=== PATIENT | female | born 1940 | race Caucasian/White ===

== ENCOUNTER → 2017-04-25 | Outpatient (CLI) | payer BC ==
--- NOTE | 2017-04-26 13:18 | CARD ---
APPROVED REPORT EXAM: Two-dimensional and M-mode echocardiogram with Doppler and color Doppler. Other Information Quality : GoodHR: 73bpm Rhythm : NSR INDICATION Chest pain at rest, SOB at rest, Lower extremity edema RISK FACTORS Obesity 2D DIMENSIONS RVDd3.1 (2.9-3.5cm)Left Atrium(2D)4.1 (1.6-4.0cm) IVSd0.8 (0.7-1.1cm)Aortic Root(2D)2.9 (2.0-3.7cm) LVDd5.4 (3.9-5.9cm)LVOT Diameter2.2 (1.8-2.4cm) PWd0.8 (0.7-1.1cm)LVDs3.5 (2.5-4.0cm) FS (%) 35.0 %SV90.2 ml LVEF(%)60.0 (>50%) Aortic Valve AoV Peak Lino.132.8cm/sAoV VTI27.2cm AO Peak GR.7.1mmHgLVOT Peak Lino.95.3cm/s AO Mean GR.4mmHgAVA (VMAX)2.74cm2 Mitral Valve MV E Vzmtpgul06.7cm/sMV E Peak Gr.3mmHg MV DECEL [id number] A Vosgicvk08.2cm/s MV E Mean Gr.1mmHgE/A Ratio0.8 MV A [id number] Pulmonary Valve PV Peak Bcdxpexk75.1cm/s Tricuspid Valve TR P. Exwskfos594jh/sTR Peak Gr.23mmHg Pulmonary Vein S1 Iwzkmguk45.8cm/sD2 Vruzvsgq21.0cm/s PVa hvxtmoir70vcpj LEFT VENTRICLE The left ventricle is normal size. There is normal left ventricular wall thickness. The left ventricu lar systolic function is normal and the ejection fraction is within normal range. The Ejection Fracti on is 60%. There is normal LV segmental wall motion. Transmitral Doppler flow pattern is Grade I-abno rmal relaxation pattern. RIGHT VENTRICLE The right ventricle is normal size. There is normal right ventricular wall thickness. The right ventr icular systolic function is normal. ATRIA The left atrium size is normal. The right atrium size is normal. The interatrial septum is intact wit h no evidence for an atrial septal defect or patent foramen ovale as noted on 2-D or Doppler imaging. AORTIC VALVE The aortic valve is mildly sclerotic. The aortic valve is trileaflet. Doppler and Color Flow revealed trace aortic regurgitation. There is no significant aortic valvular stenosis. MITRAL VALVE Mitral annular calcification is mild. The mitral valve leaflets are thickened. There is no evidence o f mitral valve prolapse. There is no mitral valve stenosis. Doppler and Color Flow revealed mild to m oderate mitral regurgitation. TRICUSPID VALVE Doppler and Color Flow revealed trace tricuspid regurgitation. The pulmonary artery systolic pressure is estimated at 26 mmHg. There is no pulmonary hypertension. PULMONIC VALVE Doppler and Color Flow revealed trace pulmonic valvular regurgitation. There is no pulmonic valvular stenosis. GREAT VESSELS The aortic root is normal in size. The ascending aorta is mildly dilated. The pulmonary artery is nor mal. The IVC is normal in size and collapses >50% with inspiration. PERICARDIAL EFFUSION There is no evidence of significant pericardial effusion. Critical Notification Critical Value: No <Conclusion> The left ventricular systolic function is normal and the ejection fraction is within normal range. The Ejection Fraction is 60%. Transmitral Doppler flow pattern is Grade I-abnormal relaxation pattern. The left atrium size is normal. The right atrium size is normal. The aortic valve is mildly sclerotic. The aortic valve is trileaflet. Doppler and Color Flow revealed trace aortic regurgitation. Doppler and Color Flow revealed mild to moderate mitral regurgitation. Mitral annular calcification is mild. The mitral valve leaflets are thickened. Doppler and Color Flow revealed trace tricuspid regurgitation. The pulmonary artery systolic pressure is estimated at 26 mmHg. There is no pulmonary hypertension. Doppler and Color Flow revealed trace pulmonic valvular regurgitation. The ascending aorta is mildly dilated. There is no evidence of significant pericardial effusion.
== END | disposition home or self-care (01) ==
LOC: ECHO 10:22
PROVIDERS: ATTEND Internal Medicine Cardiovascular Disease
DX: I08.3 Combined rheumatic disorders of mitral, aortic and tricuspid valves (principal); R06.02 Shortness of breath; R60.0 Localized edema
CPT/HCPCS: 93306

== ENCOUNTER → 2017-07-04 | Outpatient (CLI) | payer BC ==
[~2017-07-04] MED LIST: BARIUM SULFATE 340 GM SUSPENSION. PO ONE; BARIUM SULFATE 60% 355 ML SUSP PO ONE; SIMETHICONE/SOD BICARB/CITRIC ACID PACKET. PO ONE
--- NOTE | 2017-07-04 11:46 | RAD ---
Esophagram, 07/04/2017: History: Cough, swallowing difficulty The study was performed utilizing high density and thin liquid barium. 4.7 minutes of fluoroscopy time was utilized. 14 dynamic and static fluoroscopic sequences were recorded. There is no obstruction to flow of the contrast through the cervical esophagus. A mild cricopharyngeal impression is noted along the posterior wall of the cervical esophagus. There is no evidence of aspiration. The esophageal peristalsis is decreased with some stasis of the barium in the thoracic esophagus, particularly in the recumbent position. No obstructing process is seen. There is a small hiatal hernia. No spontaneous gastroesophageal reflux was demonstrated at this time. IMPRESSION: 1. Small hiatal hernia. 2. Decreased esophageal peristalsis.
== END | disposition home or self-care (01) ==
LOC: RAD 10:59
PROVIDERS: ATTEND Otolaryngology
DX: K21.9 Gastro-esophageal reflux disease without esophagitis (principal); K44.9 Diaphragmatic hernia without obstruction or gangrene; R05 Cough
CPT/HCPCS: 74220

== ENCOUNTER → 2017-10-07 | Outpatient (CLI) | payer BC ==
--- NOTE | 2017-10-07 09:53 | RAD ---
DATE: 10/07/2017 EXAM: DIGITAL SCREEN BILAT W/CAD HISTORY: Routine screening COMPARISON: 10/04/2016 This study was interpreted with the benefit of Computerized Aided Detection (CAD). The breast parenchyma shows scattered fibroglandular densities. Breast parenchyma level B. FINDINGS: No new or enlarging breast densities are seen. Benign type calcifications are present. No suspicious microcalcifications have developed. Benign-appearing lymph node type densities are again noted in the axillary regions. IMPRESSION: Stable mammograms without evidence of malignancy. BI-RADS CATEGORY: 2 BENIGN FINDING(S) RECOMMENDED FOLLOW-UP: 12M 12 MONTH FOLLOW-UP PQRS compliance statement: Patient information was entered into a reminder system with a target due date for the next mammogram. Mammography is a sensitive method for finding small breast cancers, but it does not detect them all and is not a substitute for careful clinical examination. A negative mammogram does not negate a clinically suspicious finding and should not result in delay in biopsying a clinically suspicious abnormality. "Our facility is accredited by the [employer] Mammography Program."
== END | disposition home or self-care (01) ==
LOC: MAMMO 07:32
PROVIDERS: ATTEND Family Medicine
DX: Z12.31 Encounter for screening mammogram for malignant neoplasm of breast (principal)
CPT/HCPCS: G0202; 77067

== ENCOUNTER → 2018-02-12 | Outpatient (CLI) | payer BC | END | disposition home or self-care (01) | LOC: ECHO 12:33 | DX: I08.0 Rheumatic disorders of both mitral and aortic valves (principal) | CPT/HCPCS: 93306 ==

== ENCOUNTER → 2018-09-15 | Outpatient (CLI) | payer BC | END | disposition home or self-care (01) | LOC: ECHO 09:07 | PROVIDERS: ATTEND Internal Medicine Cardiovascular Disease | DX: I34.0 Nonrheumatic mitral (valve) insufficiency (principal) | CPT/HCPCS: 93306 ==

== ENCOUNTER → 2019-02-06 | Outpatient (CLI) | payer BC ==
[~2019-02-06] MED LIST changes: +ACET500T68 PO; +AMIT100T PO; +ASPI325T11 PO; -BARIUM SULFATE 340 GM SUSPENSION. PO ONE; -BARIUM SULFATE 60% 355 ML SUSP PO ONE; +CALC600T4 PO; +CYAN500T40 SL; +FLUO20CA8 PO; +IBUP-1060 PO; +LORA10TA3 PO; +LOSA1TAB25 PO; +MELO15TA23 PO; +MONT10TA9 PO; +MULT-650 PO; +OXYC1TAB22 PO; +PRAV20TA2 PO; +RANI150C PO; +REGADENOSON 0.4 MG/5 ML DISP.SYRIN. IV ONE; -SIMETHICONE/SOD BICARB/CITRIC ACID PACKET. PO ONE; +VERA240C2 PO
--- NOTE | 2019-02-06 13:44 | RAD ---
MR#: [id number] Date of Study: 02/06/2019 Ordering Physician: NINO BLOOM, Referring Physician: ZARA TANG Tech: DANGELO Kitchen APPROVED REPORT Test Type: Pharmacological Stress Nurse/Tech: Lian Myrick R.N. Test Indications: dyspnea, lightheaded Cardiac History: htn Medications: See Electronic Medical Record Medical History: See Electronic Medical Record Resting ECG: SR- some T and p waves are fairly flat Resting Heart Rate: 79 bpm Resting Blood Pressure: 135/53mmHg Pretest Chest Pain: No chest pain Nurse/Tech Notes S1S2, lungs CTA Consent: The procedure was explained to the patient in lay terms. Informed consent was witnessed. Boy eout was entered into [employer]. History and Stress Test performed by RT Gael (R) (N) Pharm. Details Pharmacologic stress testing was performed using 0.4mg per 5ml of regadenoson given intravenously ove r 7-10 seconds. Stress Symptoms SOB, h/a POST EXERCISE Reason for Termination: Infusion complete Max HR: 93 bpm Max Blood Pressure: 177/90mmHg Blood Pressure response to exercise: Normal blood pressure response during stress. Heart Rate response to exercise: wnl Chest Pain: No. Arrhythmia: No. ST Change: No. INTERPRETATION Stress EKG Conclusion: No evidence of stress induced EKG changes. Imaging Protocol IMAGE PROTOCOL: Rest Tc-99m/stress Tc-99m 1 day Rest: Stress: Viability: Radiopharm.Tc99m AzvbbekgdFk04d Sestamibi Zjof59gVa 33mCi Duration 16min. 13min. Img Date 02/06/2019 02/06/2019 Inj-Img Pnci92pqm. 60min. Rest Admin Site:IV - Right AntecubitalAdministrator:RT Gael (R)(N) Stress Admin Site: IV - Right AntecubitalAdministrator: ZARA IyerTCB, ARRT (R)(N) STRESS DATA End Diast. Vol.107.0mlLVEDV index BSA59.0ml End Syst. Vol.29.0mlLVESV index BSA16.0ml Myocardial Ydxo956.0gEject. Kqkyxezb53.0% Stress Scores Regional WT0.00Summed WT3.00 Regional WM0.00Summed WM1.00 LV Perfusion There is a moderate sized basal to distal anteroseptal defect on stress images with reversibility not ed in the apical segments only, suggestive of prior septal infart with mild ischemia in the apical se gments. Wall Motion Normal wall motion. LV Perf. Quant 17 Seg. SSS9.00 17 Seg. SRS9.00 17 Seg. SDS3.00 Stress Defect Extent (% LAD)31.30Rest Defect Extent (% LAD)20.60Rev. Defect Extent (% LAD)6.30 Stress Defect Extent (% LCX) 38.80Rest Defect Extent (% LCX)31.30Rev. Defect Extent (% LCX)0.00 Stress Defect Extent (% RCA)0.00Rest Defect Extent (% RCA)0.00Rev. Defect Extent (% RCA)0.00 Stress Defect Extent (% RUFUS)20.70Rest Defect Extent (% RUFUS)14.30Rev. Defect Extent (% RUFUS)2.40 Other Information Quality:Good Risk Assessment: Moderate Risk Conclusion 1. No evidence of stress induced EKG changes. 2. Apical and septal defects with mild ischemia as noted above. 3. Normal EF at 55% 4. Moderate risk study Signed by : Nino Bloom, Electronically Approved : 02/06/2019 13:44:20
== END | disposition home or self-care (01) ==
LOC: NM 07:26
PROVIDERS: ATTEND Internal Medicine Cardiovascular Disease
DX: I25.9 Chronic ischemic heart disease, unspecified (principal); I10 Essential (primary) hypertension; Q21.1 Atrial septal defect
CPT/HCPCS: 78452; 93017; 96374; A9500; J2785

== ENCOUNTER → 2019-02-17 | Outpatient (CLI) | payer BC ==
[~2019-02-17] MED LIST changes: -REGADENOSON 0.4 MG/5 ML DISP.SYRIN. IV ONE
--- NOTE | 2019-02-17 10:06 | RAD ---
MR#: [id number] Date of Study: 02/17/2019 Ordering Physician: NINO RENTERIA, Referring Physician: NINO RENTERIA, Tech: Otoniel Gould MBA, RDMS, RVT, RDCS, RTR APPROVED REPORT Patient Location : OUT-PATIENT Indications Lower Extremity Edema : Bilateral Greater Saphenous Veins (GSV) Significant venous relux noted in the RIGHT GSV at the following levels : Superficial Femoral Junctio n Findings The right GSV measures 6.2 mm and has a reflux time of 2.5 seconds at the SFJ but this is not well vi sualized throughout the course of the vein. The left GSV measures 5.6 mm and does not reflux. The bilateral lesser saphenous veins do not reflux. Critical Notification Critical Value: No <Conclusion> Mild reflux in the R GSV Signed by : Nino Renteria, Electronically Approved : 02/17/2019 10:05:53
== END | disposition home or self-care (01) ==
LOC: US 07:21
PROVIDERS: ATTEND Internal Medicine Cardiovascular Disease
DX: I87.2 Venous insufficiency (chronic) (peripheral) (principal)
CPT/HCPCS: 93970

== ENCOUNTER → 2019-02-17 | Outpatient (CLI) | payer BC ==
[2019-02-17 14:45] LABS: BASO # 0.1 x10^3/uL (0.0-0.2); BASO % 1 % (0-3); EOS # 0.1 x10^3/uL (0.0-0.7); EOS % 1 % (0-3); HEMATOCRIT 32.6 % (36.0-47.0); LYMPH # 1.8 x10^3/uL (1.0-4.8); LYMPH % 36 % (24-48); MEAN CORPUSCULAR HEMOGLOBIN 32 pg (25-35); MEAN CORPUSCULAR HGB CONC 34 g/dL (31-37); MEAN CORPUSCULAR VOLUME 94 fL (79-100); MONO # 0.5 x10^3/uL (0.0-1.1); MONO % 11 % (0-9); NEUT # 2.5 x10^3uL (1.8-7.7); NEUT % 51 % (31-73); PLATELET COUNT 316 x10^3/uL (140-400); RED BLOOD COUNT 3.46 x10^6/uL (3.50-5.40); RED CELL DISTRIBUTION WIDTH 13.1 % (11.5-14.5)
[2019-02-17 14:45] LABS: BILIRUBIN,URINE NEGATIVE (NEG); CLARITY,URINE CLEAR; COLOR,URINE YELLOW; NITRITE,URINE NEGATIVE (NEG); PH,URINE 7.5; PROTEIN,URINE NEGATIVE (NEG-TRACE); UROBILINOGEN,URINE 0.2 mg/dL (0.2 mg/dL)
--- NOTE | 2019-02-17 14:50 | EKG ---
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
[2019-02-17 14:52] LABS: ALBUMIN 3.7 g/dL (3.4-5.0); CALCIUM 9.1 mg/dL (8.5-10.1); CREATININE 0.6 mg/dL (0.6-1.0); GFR 97.2; POTASSIUM 3.4 mmol/L (3.5-5.1)
[2019-02-17 14:55] LABS: BACTERIA,URINE 0 /HPF (0-FEW); SQUAMOUS EPITHELIAL CELL,UR FEW /LPF; WBC,URINE RARE /HPF (0-4)
[2019-02-17 14:58] LABS: PROTHROMBIN TIME PATIENT 12.9 SEC (11.7-14.0)
[2019-02-18 00:18] LABS: HEMOGLOBIN A1C 5.3 % (4.8-5.6)
--- NOTE | 2019-02-18 08:15 | RAD ---
CHEST PA LATERAL History: PRE OP RT KNEE REPLACEMENT ON 02/19/19. HX HTN Comparison: None. Findings: The cardiomediastinal silhouette is normal. Pulmonary vasculature is normal. The lungs are clear. No pleural effusion or pneumothorax is seen. There is no acute bone abnormality. Dextroconvex scoliosis of the thoracic spine is present. IMPRESSION: No acute cardiopulmonary process. Electronically signed by: Santo Everett MD (02/18/2019 8:12 AM) [facility]
== END | disposition home or self-care (01) ==
LOC: SURGPAT 13:21
PROVIDERS: ATTEND Orthopaedic Surgery
DX: Z01.818 Encounter for other preprocedural examination (principal); M17.11 Unilateral primary osteoarthritis, right knee; I10 Essential (primary) hypertension; Z88.0 Allergy status to penicillin
CPT/HCPCS: 36415; 71046; 80048; 81001; 82040; 82306; 83036; 85025; 85610; 85651; 85730; 87641; 93005

== ENCOUNTER 2019-02-19 06:54 | Outpatient (CLI) | payer BC ==
[~2019-02-19] VITALS: Ht 152.4 cm; Wt 81.6 kg
[2019-02-19] VITALS (12 sets, daily range): BP systolic 123–149; BP diastolic 69–82
[~2019-02-19 06:54] MED LIST changes: -ACET500T68 PO; -ASPI325T11 PO; -CYAN500T40 SL; -MELO15TA23 PO; -OXYC1TAB22 PO; -PRAV20TA2 PO; -RANI150C PO
[2019-02-19 07:16] LABS: HEMATOCRIT 32.5 % (36.0-47.0); HEMOGLOBIN 11.2 g/dL (12.0-15.5); RED BLOOD COUNT 3.44 x10^6/uL (3.50-5.40); RED CELL DISTRIBUTION WIDTH 13.3 % (11.5-14.5); WHITE BLOOD COUNT 5.1 x10^3/uL (4.0-11.0)
[2019-02-19 07:24] LABS: CALCIUM 9.2 mg/dL (8.5-10.1); CREATININE 0.7 mg/dL (0.6-1.0); GFR 81.4; POTASSIUM 3.9 mmol/L (3.5-5.1)
[2019-02-19 07:29] LABS: PROTHROMBIN TIME PATIENT 12.5 SEC (11.7-14.0)
[2019-02-19] MEDS ORDERED: RANI150C PO (07:35)
[2019-02-19] MEDS ORDERED: IOHEXOL 300 MG/ML 100ML VIAL. ONE (07:41)
[2019-02-19] MEDS ORDERED: LIDOCAINE 1% PF 2 ML VIAL. ONE (07:41)
[2019-02-19] MEDS ORDERED: HEPARIN for ARTERIAL LINE 1,500 ML ONE (07:42)
[2019-02-19] MEDS ORDERED: PRAV20TA2 PO (07:52)
[2019-02-19] MEDS ORDERED: CYAN500T40 SL (07:52)
--- NOTE | 2019-02-19 08:18 | PDOC ---
MODERATE SEDATION ASSESSMENT RISKS/ALTERNATIVES Risks/Alternatives Risks and alternatives of this type of sedation and procedure discussed with: RISK/ALTERNATIVES: Patient H & P ON CHART H & P H & P on chart and reviewed for co-morbid conditions and appropriate labs. H&P ON CHART: Yes STATUS PREG STATUS ASSESSED: N/A MEDS/ALLERGIES REVIEWED Meds/Allergies Reviewed Medications and Allergies including time and route of recently administered narcotics and sedatives. MEDS/ALLERGIES REVIEWED: Yes ASA RATING ASA RATING: II AIRWAY ASSESSMENT Airway Assessment Airway patency, oral function limitations, presence of caps, crowns, dentures, partials, and ability to extend neck assessed. AIRWAY ASSESSMENT: Yes MALLAMPATI SCORE MALLAMPATI SCORE: II PRE-SEDATION ASSESSMENT PRE-SEDATION ASSESSMENT: Yes NINO RENTERIA MD Feb 19, 2019 08:18
[2019-02-19] MEDS ORDERED: FAMOTIDINE 20 MG/2 ML VIAL ONE (08:19)
[2019-02-19] MEDS ORDERED: fentaNYL PF VIAL 100 MCG/2 ML VIAL ONE (08:19)
[2019-02-19] MEDS ORDERED: HEPARIN for IV BOLUS 10,000 UNIT/10 ML VIAL. ONE (08:19)
[2019-02-19] MEDS ORDERED: methylPREDNISolone SOD SUCC PF 125 MG/2 ML VIAL. ONE (08:19)
[2019-02-19] MEDS ORDERED: VERAPAMIL 5 MG/2 ML VIAL. ONE (08:19)
[2019-02-19] MEDS ORDERED: diphenhydrAMINE 50 MG/ML VIAL ONE (08:19)
[2019-02-19] MEDS ORDERED: MIDAZOLAM HCL/PF 2 MG/2 ML VIAL. ONE (08:19)
[2019-02-19] MEDS ORDERED: NITROGLYCERIN 200 MCG/2 ML SYRINGE FOR CATH/VASC LAB. ONE ×3 (08:20→08:55)
[2019-02-19] MEDS ORDERED: FAMOTIDINE 20 MG/2 ML VIAL IVP ONE (09:00)
[2019-02-19] MEDS ORDERED: HEPARIN for IV BOLUS 10,000 UNIT/10 ML VIAL. IART ONE (09:00)
[2019-02-19] MEDS ORDERED: diphenhydrAMINE 50 MG/ML VIAL IVP ONE (09:00)
[2019-02-19] MEDS ORDERED: HEPARIN for IV BOLUS 10,000 UNIT/10 ML VIAL. IV ONE (09:00)
[2019-02-19] MEDS ORDERED: LIDOCAINE 1% PF 2 ML VIAL. INJ ONE (09:00)
[2019-02-19] MEDS ORDERED: fentaNYL PF VIAL 100 MCG/2 ML VIAL IV ONE (09:00)
[2019-02-19] MEDS ORDERED: NITROGLYCERIN 200 MCG/2 ML SYRINGE FOR CATH/VASC LAB. IART ONE (09:00)
[2019-02-19] MEDS ORDERED: methylPREDNISolone SOD SUCC PF 125 MG/2 ML VIAL. IV ONE (09:00)
[2019-02-19] MEDS ORDERED: MIDAZOLAM HCL/PF 2 MG/2 ML VIAL. IV ONE (09:00)
[2019-02-19] MEDS ORDERED: IOHEXOL 300 MG/ML 100ML VIAL. IART ONE (09:00)
[2019-02-19] MEDS ORDERED: VERAPAMIL 5 MG/2 ML VIAL. IART ONE (09:00)
[2019-02-19] MEDS ORDERED: CONTRAST GIVEN. MC PRN (09:15)
--- NOTE | 2019-02-19 09:20 | CARD ---
MR#: [id number] Date of Study: 02/19/2019 Ordering Physician: NINO BLOOM, Referring Physician: NINO BLOOM, Tech: CARLOS ORLANDO RTR APPROVED REPORT Technologist: CARLOS ORLANDO RTR Nurse: Lorri Saucedo R.N. Procedure(s) performed: MODERATE SEDATION TIME: 37 MIN FLUORO TIME: 4.3 DOSE: 24 GYCM2 CONTRAST: 40 mL LHC, Coronary angiography HISTORY The patient is a 78 year-old female with a history of : tobacco history() , hypertension, dyslipidemi a. INDICATION The indication(s) include : positive stress test, unstable angina , dyspnea. CS Clinical Frailty Scale [facility] Clinical Frailty Scale: Managing Well Heart Failure Heart Failure: Yes If Yes, Newly Diagnosed: No If Yes, HF Type: Diastolic If Yes, NYHA Class: Class II PROCEDURE NARRATIVE INFORMED CONSENT: After explaining the risks and benefits of the procedure and alternatives, informed consent was obtained. The patient was brought electively to the cardiac catheterization lab. A timeout was performed confi rming the patient's name, date of , procedure, and site of procedure. All necessary personnel w ere wearing the appropriate protective equipment and radiation monitor devices. (See nursing notes for medications administered). ACCESS: The right wrist was sterilely prepped and draped in the usual fashion. The right wrist was infiltrat ed with 1 mL of 2% lidocaine for subcutaneous anesthesia. A 6 [place] Terumo glide sheath was inserte d into the right radial artery without difficulty. CORONARY ANGIOGRAPHY: Right and left coronary angiography was performed using a 6Fr TIG 4.0 catheter. Left ventricular en d diastolic pressure was obtained with a TIG catheter and pullback was performed after left ventricul ography. All catheter exchanges and advancements were performed over a guidewire. CLOSURE: At case completion the right radial sheath was removed and a Terumo radial band was applied with 13 m l of air. COMPLICATIONS: The patient tolerated the procedure well and there were no immediate complications. FINDINGS: HEMODYNAMICS: LVEDP 22 mm Hg No gradient on LV to aortic pullback. AO: 158/78 LEFT VENTRICULOGRAM: Deferred due to known EF of 55% by MPI. CORONARY ANGIOGRAPHY: LM is a large caliber vessel with normal angiographic appearance. LAD is a large caliber vessel with normal angiographic appearance. LCx is a large caliber non-dominant vessel with normal angiographic appearance. OM1 is a moderate caliber vessel with normal angiographic appearance. RCA is a large caliber dominant vessel with amid 50-60% stenosis. RPDA and RPL are moderate caliber vessels with normal angiographic appearance. An attempt was made to obtain an iFR measurement but due to severe radial artery spasm, advancement o f guide catheters was unsuccessful. Due to minimal ischemia, normal EF and only a moderate stenosis, further intervention was deferred in favor of medical therapy and staged PCI if needed based on sympt oms. Conclusion 1. Elevated left sided filling pressures suggestive of mild diastolic HF 2. One vessel CAD Recommendations Aggressive Medical Therapy Signed by : Nino Bloom, Electronically Approved : 02/19/2019 09:19:57
[2019-02-19] MEDS ORDERED: 0.9 % SODIUM CHLORIDE 10 ML DISP.SYRIN. IV PRN (11:00)
[2019-02-19] MEDS ORDERED: NITROGLYCERIN SUBLINGUAL 0.4 MG BOTTLE OF 25. SL PRN (11:00)
--- NOTE | 2019-02-19 11:54 | NUR ---
Discharge Note: NORAH PIZARRO Discharge instructions and discharge home medications reviewed with Patient and a copy given. All questions have been answered and understanding verbalized. The following instructions and handouts were given: moderate sedation and radial site care Discontinued lines and drains: Peripheral IV intact. Patient discharged to Home or Self Care withSpousevia Wheelchair
[2019-03-13] MEDS ORDERED: OXYC1TAB22 PO (10:45)
== END 2019-02-19 12:00 | disposition home or self-care (01) ==
LOC: CCL 06:54
PROVIDERS: ATTEND Internal Medicine Cardiovascular Disease
DX: I25.110 Atherosclerotic heart disease of native coronary artery with unstable angina pectoris (principal); I10 Essential (primary) hypertension; E78.5 Hyperlipidemia, unspecified; K21.9 Gastro-esophageal reflux disease without esophagitis; Z88.0 Allergy status to penicillin; Z88.8 Allergy status to other drugs, medicaments and biological substances; Z79.899 Other long term (current) drug therapy; Z87.19 Personal history of other diseases of the digestive system; Z98.1 Arthrodesis status; Z98.890 Other specified postprocedural states; Z96.652 Presence of left artificial knee joint; Z87.891 Personal history of nicotine dependence; Z82.49 Family history of ischemic heart disease and other diseases of the circulatory system
CPT/HCPCS: 36415; 80048; 85027; 85610; 93458; 99152; 99153; C1769; C1892; J1200; J1644; J2250; J2930; J3010; J3490; Q9967

== ENCOUNTER 2019-03-10 06:40 | Inpatient (IN) | payer BC ==
--- NOTE | 2019-03-09 16:54 | PDOC1 ---
History and Physical Date of Admission Date of Admission 03/10/19 Identification/Chief Complaint Chief Complaint right knee osteoarthritis pain Source Source: Chart review History of Present Illness History of Present Illness 78-year-old woman with right knee arthritis pain for many years. Remotely she tried cortisone injections, "gel" shots, and physical therapy. She uses ibuprofen, and occasional narcotic pain medicines for the knee pain. It limits her activity on a daily basis or near daily. She had a left total knee replacement by Dr. Roca in 2012 which is doing very well. In the recovery room from the left total knee replacement she had marked hypertension and almost ended up in the ICU. Otherwise she has done quite well with the left total knee. Her primary physician is James Benito. She saw Dr. 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 She has mitral valve regurgitation and other diagnoses. She lives at home with her of 50 years. Her got very sick in November 2018, and ended up with a pacemaker by Dr. Bloom, and is doing fine now. Past Medical History Cardiovascular: HTN, Valve insufficiency Past Surgical History Past Surgical History: Total knee replacement (Left TKA Roca 2012) Social History Smoke: Quit ALCOHOL: none Current Medications Current Medications Current Medications Ondansetron HCl (Zofran) 4 mg PRN Q6HRS PRN IV NAUSEA/VOMITING; Start 03/10/19 at 07:00; Stop 03/11/19 at 06:59 Fentanyl Citrate (Fentanyl 2ml Vial) 25 mcg PRN Q5MIN PRN IV MILD PAIN; Start 03/10/19 at 07:00; Stop 03/11/19 at 06:59 Fentanyl Citrate (Fentanyl 2ml Vial) 50 mcg PRN Q5MIN PRN IV MODERATE TO SEVERE PAIN; Start 03/10/19 at 07:00; Stop 03/11/19 at 06:59 Morphine Sulfate (Morphine Sulfate) 1 mg PRN Q10MIN PRN IV SEVERE PAIN; Start 03/10/19 at 07:00; Stop 03/11/19 at 06:59 Ringer's Solution 1,000 ml @ 30 mls/hr Q24H IV ; Start 03/10/19 at 07:00; Stop 03/10/19 at 18:59 Lidocaine HCl (Xylocaine-Mpf 1% 2ml Vial) 2 ml PRN 1X PRN ID PRIOR TO IV START; Start 03/10/19 at 07:00; Stop 03/11/19 at 06:59 Hydromorphone HCl (Dilaudid) 0.5 mg PRN Q10MIN PRN IV SEV PAIN, Second choice; Start 03/10/19 at 07:00; Stop 03/11/19 at 06:59 Prochlorperazine Edisylate (Compazine) 5 mg PACU PRN PRN IV NAUSEA, MRX1; Start 03/10/19 at 07:00; Stop 03/11/19 at 06:59 Morphine Sulfate 5 mg/Ketorolac Tromethamine 30 mg/Ropivacaine 60 ml/Epinephrine HCl 0.5 mg/Sodium Chloride 100 ml @ 100 mls/hr 1X ONCE INT ART ; Start 9 at 06:00; Stop 03/10/19 at 06:59 Active Scripts Active Reported Vitamin B-12 (Cyanocobalamin (Vitamin B-12)) 500 Mcg Tab.subl 500 Mcg SL DAILY Pravastatin Sodium 20 Mg Tablet 1 Tab PO QODAY Ranitidine Hcl 150 Mg Capsule 1 Cap PO BID Centrum Silver Women Tablet (Multivits-Min/Iron/FA/Lutein) 1 Each Tablet 1 Each PO DAILY Calcium (Calcium Carbonate) 600 Mg Tablet 600 Mg PO DAILY Montelukast Sodium Tablet (Montelukast Sodium) 10 Mg Tablet 1 Tab PO DAILY Loratadine 10 Mg Tablet 1 Tab PO DAILY Fluoxetine Hcl 20 Mg Capsule 1 Cap PO DAILY Verapamil Er (Verapamil Hcl) 240 Mg Cap24h.pel 120 Mg PO DAILY Losartan-Hctz 100-12.5 Mg Tab (Losartan/Hydrochlorothiazide) 1 Each Tablet 1 Tab PO DAILY Ibuprofen 800 Mg Tablet 800 Mg PO TID PRN Amitriptyline Hcl 100 Mg Tablet 1 Tab PO QHS Allergies Allergies: Coded Allergies: Penicillins (Verified Allergy, Severe, DIFFICULTY BREATHING, 02/17/19) iodine (Verified Allergy, Intermediate, Hives, 02/17/19) Physical Exam General: Alert, Cooperative HEENT: Atraumatic Lungs: Normal air movement Heart: RRR Abdomen: Soft Extremities: No clubbing, No cyanosis, No edema, Normal pulses Images Images [facility] [address] [place] [address] IMAGING REPORT Signed PATIENT: NORAH PIZARRO ACCOUNT: [id number] : 1940 LOCATION: [facility] AGE: 78 SEX: F EXAM STATUS: REG CLI ORD. PHYSICIAN: MAYA WHITT MD REASON: PROCEDURE: KNEE RIGHT 3V EXAM: Right knee, 3 views. HISTORY: Pain. COMPARISON: None. FINDINGS: A frontal standing view both knees and lateral and sunrise views of the right knee are obtained. There is severe right medial compartment joint space narrowing with subchondral sclerosis and spurring. There is moderate to severe patellofemoral compartment spurring. There is a small right knee effusion. There is a suspected degenerative subchondral cyst or small osteochondral lesion along the articular aspect of the lateral femoral condyle. There is a left knee arthroplasty in expected position. IMPRESSION: 1. Severe medial and moderate to severe lateral compartment osteoarthritis of the right knee with small joint effusion. There is a small lucency along the articular aspect of the lateral femoral condyle which may be a small degenerative subchondral cyst or osteochondral lesion. 2. Left knee arthroplasty in expected position. Electronically signed by: Maria Fernanda Mahoney MD (01/29/2019 5:13 PM) [facility] DICTATED and SIGNED BY: MARIA FERNANDA MAHONEY MD DATE: 01/29/19 1713 VTE Prophylaxis Ordered VTE Prophylaxis Devices: Yes VTE Pharmacological Prophylaxi: Yes Assessment/Plan Assessment/Plan She and I discussed options for treatment. She has tried nonoperative treatment without sustained relief. She is doing well with a left knee replacement. I recommend total knee arthroplasty, and she agrees with that plan. We discussed the potential risks of infection, neurovascular injury, bleeding, blood clots, need for revision surgery, or other potential surgical or anesthetic complications. we discussed the expected hospitalization, recovery, and long- term expectations of knee replacement. All of her questions about surgery were answered and she desires to proceed at the first mutually convenient date. MAYA WHITT MD March 09, 2019 16:54
[~2019-03-10] VITALS: Ht 152.4 cm; Wt 84.4 kg
[2019-03-10] VITALS (7 sets, daily range): BP systolic 104–122; BP diastolic 58–73
[~2019-03-10 06:40] MED LIST changes: +ACETAMINOPHEN 500 MG TABLET PO PRN; +CLINDAMYCIN 900MG PREMIX 50 ML IV PRN; +CYAN500T40 SL; +MELOXICAM 7.5 MG TABLET PO PRN; +MORPHINE SULFATE 5 MG, KETOROLAC 30MG VIAL 30 MG, ROPIVacaine 0.5% PF 60 ML, EPINEPHrin... INT ART ONE; +PRAV20TA2 PO; +RANI150C PO; +TRANEXAMIC ACID 1,000 MG in IV NS 50ML -- 1ST BAG INJ ONE
[2019-03-10] MEDS ORDERED: HYDROmorphone 2 MG/ML VIAL IV PRN (07:00)
[2019-03-10] MEDS ORDERED: ONDANSETRON PF 4 MG/2 ML VIAL. IV PRN (07:00)
[2019-03-10] MEDS: IV RINGERS,LACTATED 1000ML 1,000 ML IV SCH ×2 (07:00→12:53)
[2019-03-10] MEDS ORDERED: LIDOCAINE 1% PF 2 ML VIAL. ID PRN (07:00)
[2019-03-10] MEDS ORDERED: fentaNYL PF VIAL 100 MCG/2 ML VIAL IV PRN ×3 (07:00→12:30)
[2019-03-10] MEDS ORDERED: HYDROcodone/APAP 7.5/325MG 1 TAB TABLET ONE (07:08)
[2019-03-10] MEDS ORDERED: MELO15TA23 PO (07:25)
[2019-03-10] MEDS ORDERED: ACET500T68 PO (07:27)
[2019-03-10] MEDS ORDERED: TRANEXAMIC ACID 1,000 MG in IV NS 50ML -- 2ND BAG INJ ONE (08:00)
[2019-03-10] MEDS ORDERED: VANCOMYCIN 1 GM VIAL. ONE (08:52)
[2019-03-10] MEDS ORDERED: PROPOFOL 20 ML IV ONE (08:53)
[2019-03-10] MEDS ORDERED: FAMOTIDINE 20 MG/2 ML VIAL ONE (08:53)
[2019-03-10] MEDS ORDERED: fentaNYL PF VIAL 100 MCG/2 ML VIAL ONE (08:53)
[2019-03-10] MEDS ORDERED: TOBRAMYCIN POWDER 1.2 GM VIAL. ONE (08:53)
[2019-03-10] MEDS ORDERED: LIDOCAINE 2% PF 5 ML VIAL. ONE (08:53)
[2019-03-10] MEDS ORDERED: DEXAMETHASONE SOD PHOS 4 MG/ML VIAL ONE (08:53)
[2019-03-10] MEDS ORDERED: ONDANSETRON PF 4 MG/2 ML VIAL. ONE (08:53)
[2019-03-10] MEDS ORDERED: ROCURONIUM 50 MG/5 ML VIAL. ONE (08:53)
[2019-03-10] MEDS ORDERED: MIDAZOLAM HCL/PF 2 MG/2 ML VIAL. ONE (08:53)
[2019-03-10] MEDS ORDERED: SEVOFLURANE > 120 MINUTES. IH ONE ×2 (09:26→12:23)
[2019-03-10] MEDS ORDERED: 0.9 % SODIUM CHLORIDE 20 ML VIAL. IJ ONE (11:14)
[2019-03-10] MEDS ORDERED: hydrALAZINE 20 MG/ML VIAL. ONE (11:14)
[2019-03-10] MEDS ORDERED: NEOSTIGMINE METHYLSULFATE 5 MG/5 ML SYRINGE. ONE (11:19)
[2019-03-10] MEDS ORDERED: GLYCOPYRROLATE 1 MG/5 ML VIAL. ONE (11:19)
[2019-03-10] MEDS ORDERED: VANCOMYCIN 1 GM VIAL. TP ONE (11:44)
--- NOTE | 2019-03-10 12:26 | PDOC4 ---
Operative Note Operative Note Date of Procedure: March 10, 2019 Pre-Op Diagnosis: Unilateral primary osteoarthritis, right knee. M17.11 Post-Op Diagnosis: same Procedure: right total knee arthroplasty with patella resurfacing, CPT 88802 Surgeon: Maya Raymond MD Credit Administration Officer: MATHEW Garcia (Annie) Anesthesia: General EBL: 100 mL Specimens Obtained: right knee bone and soft tissue Complications: none Implant Company: [employer] Drains: hemovac plus pain catheter Tourniquet time: 54 Minutes Tourniquet Pressure: 350 mm Hg Indications for Procedure: Arthritis pain unrelieved by nonoperative management Findings: Severe osteoarthritis with bone on bone contact medially with full thickness cartilage loss in the patellofemoral and lateral compartments, bone loss medial tibia. Very degenerative calcified medial collateral ligament, so I used a constrained polyethylene to protect against later medial instability. Medial release required from tibia for correction of fixed varus deformity. Implants used: Size 4 right bicruciate stabilized Journey II BCS cobalt chrome femoral component, size 3 right Journey nonporous tibial baseplate, size 3-4 10 mm right Journey II BCS constrained articular insert, 32 mm oval Aleyda II resurfacing patellar component Procedure in Detail: The patient was identified in the preoperative holding area, and the correct right lower extremity was marked by me. The patient was taken to the operating room where the patient was anesthetized by the Department of Anesthesia. Preoperative antibiotics were given intravenously. Tranexamic acid 1 g was given intravenously for intraoperative hemostasis. A "time-out" procedure was performed. The patient was positioned supine on the operative table with a tourniquet on the upper right thigh. The right lower limb was thoroughly s crubbed, then sterile surgical prep solution was applied, and the limb was draped in sterile fashion. An impervious stockinet and adhesive drape were used such that the skin was entirely covered. An Su leg dunham was used. The operating team wore personal exhaust-ventilated hoods. The limb exsanguinated with an Esmarch bandage, and the tourniquet was inflated. A midline skin incision was made with a scalpel using the patella and tibial tubercle as landmarks. Electrocautery was used for hemostasis. My assistant shift supervisor used rake retractors. A medial parapatellar arthrotomy incision was used with extension into the distal quadriceps tendon. The patella was retracted laterally and Hohmann retractors were now used by my assistant shift supervisor. Excess synovium, the menisci, and the cruciate ligaments were resected sharply. The patella was assessed and excess synovium and osteophytes around the patellar articulation were removed. The patella was measured with a caliper, cut freehand with a saw using caliper measurements, sized, and then drilled for an oval three-pegged patella component. A periarticular multimodal ropivacaine anesthetic injection was used in the suprapatellar pouch and distal quadriceps muscle. Whitesides's line and the transepicondylar axis were marked on the femur. An intra-medullary 5 degree cutting guide was pinned to the femur, and a distal femoral cut was made with an oscillating saw. An additional 2 mm resection was used due to the deep femoral sulcus, and deficient condyle. My assistant shift supervisor held Hohmann retractors and an Army-Herbst retractor to protect the medial and lateral collateral ligaments, the patellar tendon, the skin and the other soft tissues. A posterior referencing guide was applied with external rotation of 5 to match Whitesides line. A 5-in-1 Journey II cutting guide was then applied and pinned to the femur. The posterior, anterior, and all chamfer cuts were made with the oscillating saw. An extramedullary guide was pinned to the tibia and rotational alignment and the planned resection thickness assessed. An external alignment greta was used to verify the planned cut in the varus-valgus plane and regarding posterior slope referencing the tibial tubercle, the tibial shaft, the ankle joint, and the second metatarsal. The upper tibia was cut made with an oscillating saw. My assistant shift supervisor held Hohmann retractors and a posterior cruciate ligament retractor to protect the medial and lateral collateral ligaments, the patellar tendon, the skin, the peroneal nerve and the other soft tissues. The upper tibia was sized with a trial baseplate. The posterior compartment was cleared of osteophytes and loose bodies. The periarticular anesthetic injection was used in the posterior compartment. The box cut for a posterior stabilized component was made. A preliminary reduction was performed with a trial femur, trial tibial baseplate and trial polyethylene. Soft-tissue balancing was now performed, and extension and rotation of the alignments was checked using a guide greta in the tibial trial and a guide pin in the femur. A medial release was required, using a 10 blade scalpel, and a Kraus elevator to elevate the medial structures from the upper medial tibia. The stability was assessed using different thicknesses of tibial articular surface to find satisfactory stability and good range of motion. The rotation of the tibial component was marked on the upper tibia. Final trial reduction was now performed verifying patella tracking and tibiofemoral stability and alignment. The tibia preparation was completed with a drill, saw, and fin punch at the previously noted rotation. The final implants were verified and opened. Outer gloves were changed by the operating team. The bone cuts were washed thoroughly with the Aamir InterPulse device and dried. Two packages of [employer] HV bone cement were mixed in powdered form with Vancomycin 1gm and Tobramycin 1.2 gm, and then vacuum-mixed with the monomer, and placed into a cement gun. The cut surfaces of the bone were thoroughly dried with Hill-tip suction and with laparotomy sponges for cement interdigitation. The final components were cemented into place. The knee was kept at full extension while the cement hardened, and excess cement was removed. Topical betadine is usually used at this point, but was not used due to allergy.Tranexamic acid 1 g was redosed intravenously for additional intraoperative hemostasis. The tourniquet was released, and electrocautery was used for hemostasis. A final periarticular anesthetic injection was used for pain relief. A final check of [id number] and stability was made, and the polyethylene implant final size was chosen. The polyethylene implant was secured to the tibial baseplate, and the knee was reduced a final time and range of motion and stability was confirmed. Thorough irrigation was used. Hemovac and pain catheter were used. Topical Vancomycin 1 gm was used during the closure. The arthrotomy was closed with interrupted [id number] #1 PDS suture. The arthrotomy incision was then run with #1 STRATAFIX Symmetric PDS Plus Knotless suture. The subcutaneous tissues were reapproximated initially with 2-0 PDS . Next the subcuticular layer was reapproximated in a running fashion with #3-0 Stratafix suture by my assistant shift supervisor. The skin incision was then covered and reinforced with Acticoat, followed by a ARIELLE single use negative pressure wound therapy dressing Soft roll and an Vinod wrap were applied. Needle and sponge counts were correct. There were no apparent complications. The patient returned to the recovery room in stable condition. MAYA RAYMOND MD March 10, 2019 12:26
[2019-03-10] MEDS ORDERED: MORPHINE SULFATE 4 MG/ML VIAL. IV PRN (12:30)
[2019-03-10] MEDS ORDERED: CALCIUM CARBONATE 500 MG TAB.CHEW PO PRN (12:30)
[2019-03-10] MEDS ORDERED: PROCHLORPERAZINE 5 MG TABLET. PO PRN (12:30)
[2019-03-10] MEDS ORDERED: 0.9 % SODIUM CHLORIDE 10 ML DISP.SYRIN. IV PRN (12:30)
[2019-03-10] MEDS ORDERED: METOCLOPRAMIDE HCL 10 MG/2 ML VIAL. IV PRN (12:30)
[2019-03-10] MEDS ORDERED: diphenhydrAMINE 50 MG/ML VIAL IV PRN (12:30)
[2019-03-10] MEDS ORDERED: DEXTROSE 50% 25 GM / 50ML DISP.SYRIN. IV PRN (12:30)
[2019-03-10] MEDS ORDERED: MORPHINE SULFATE 2 MG/ML VIAL. IV PRN (12:30)
[2019-03-10] MEDS: PROCHLORPERAZINE 10 MG/2 ML VIAL. IV PRN ×2 (12:52→13:09)
[2019-03-10] MEDS: fentaNYL PF VIAL 100 MCG/2 ML VIAL IV PRN ×2 (12:53→13:10)
[2019-03-10] MEDS ORDERED: IV NORMAL SALINE 1000ML BAG 1,000 ML IV SCH (13:00)
[2019-03-10] MEDS: MORPHINE SULFATE 2 MG/ML VIAL. IV PRN ×2 (13:09→13:52)
--- NOTE | 2019-03-10 13:19 | RAD ---
Examination: 2 views of the right knee HISTORY: History of postop right knee COMPARISON: 01/29/2019. FINDINGS: Total knee arthroplasty changes in normal alignment. Postoperative air and drain identified in the knee joint effusion. Postsurgical changes identified identified in the posterior patella. IMPRESSION: Right knee arthroplasty changes in normal alignment. Electronically signed by: Jeff Hope MD (03/10/2019 1:16 PM) [facility]
--- NOTE | 2019-03-10 14:46 | NUR ---
received from recovery. and friends at bedside. she is rating her pain a "10". denies nausea; given water. she has good motion, pulses and sensation bilateral lower extremities. strength is weak bilateral
[2019-03-10] MEDS: oxyCODONE/APAP 5/325 1 TAB TABLET PO PRN ×2 (16:42→22:27)
[2019-03-10] MEDS: FERROUS SULFATE 325 MG TABLET. PO SCH (16:42)
[2019-03-10] MEDS: CLINDAMYCIN 900MG PREMIX 50 ML IV SCH ×2 (16:44→22:28)
[2019-03-10] MEDS: ONDANSETRON ODT 4 MG TAB.RAPDIS. PO SCH (17:54)
[2019-03-10] MEDS: ONDANSETRON PF 4 MG/2 ML VIAL. IV SCH (17:54)
--- NOTE | 2019-03-10 17:54 | NUR ---
Zofran IV/po held, no nausea or vomiting noted
[2019-03-10] MEDS: KETOROLAC 30MG VIAL 30 MG, BUPIVACAINE MPF 0.25% 20 ML, EPINEPHrine 0.5 MG in TOTAL VOL... INT ART SCH (18:06)
[2019-03-10] MEDS: FAMOTIDINE 20 MG TABLET. PO SCH (20:56)
[2019-03-10] MEDS: ASPIRIN ENTERIC COATED 325 MG TABLET.DR. PO SCH (20:56)
[2019-03-10] MEDS: ATORVASTATIN CALCIUM 10 MG TABLET. PO SCH (20:57)
[2019-03-10] MEDS: AMITRIPTYLINE HCL 25 MG TABLET. PO SCH (20:57)
[2019-03-10] MEDS: MONTELUKAST SODIUM 10 MG TABLET. PO SCH (20:59)
--- NOTE | 2019-03-10 23:15 | NUR ---
pt assisted to bathroom attempted to void no success bladder scan pt showing 803 ml,straight cath patient per protocol using aseptic technique @[id number] obtained 925ml light anna urine
[2019-03-11 03:18] VITALS: BP 107/61
[2019-03-11] MEDS: CLINDAMYCIN 900MG PREMIX 50 ML IV SCH (04:28)
[2019-03-11] MEDS: KETOROLAC 30MG VIAL 30 MG, BUPIVACAINE MPF 0.25% 20 ML, EPINEPHrine 0.5 MG in TOTAL VOL... INT ART SCH (05:33)
[2019-03-11] MEDS: ONDANSETRON PF 4 MG/2 ML VIAL. IV SCH ×3 (06:00→11:42)
[2019-03-11] MEDS ORDERED: MAGNESIUM HYDROXIDE 2,400 MG/30 ML ORAL.SUSP. PO PRN (06:00)
[2019-03-11] MEDS: ONDANSETRON ODT 4 MG TAB.RAPDIS. PO SCH ×3 (06:00→11:42)
[2019-03-11 06:58] VITALS: BP 115/64
[2019-03-11] MEDS: oxyCODONE/APAP 5/325 1 TAB TABLET PO PRN ×4 (07:40→20:18)
--- NOTE | 2019-03-11 07:50 | PDOC ---
ORTHO PROGRESS NOTES Subjective Patient doing well with exception of urinary retention. Post-op Day: 1 Procedure R TKA Vitals Vital Signs Date Time Temp Pulse Resp B/P (MAP) Pulse Ox O2 Delivery O2 Flow Rate FiO2 03/11/19 07:40 Room Air 03/11/19 06:58 98.9 73 20 115/64 (81) 95 98.9 03/10/19 15:39 2.0 Notes awake and alert In restroom currently Assessment and Plan POD # 1 S/P R TKA motor and sensory intact distally per RN dressing dry and intact PT today PATRICA JOHNSON APRN March 11, 2019 07:50
[2019-03-11 08:00] VITALS: BP 113/68
[2019-03-11] MEDS: VERAPAMIL SR 120 MG TABLET.ER. PO SCH (08:03)
[2019-03-11] MEDS: FLUoxetine HCL 20 MG CAPSULE PO SCH (08:04)
[2019-03-11] MEDS: FAMOTIDINE 20 MG TABLET. PO SCH ×2 (08:04→20:17)
[2019-03-11] MEDS: LOSARTAN POTASSIUM 50 MG TABLET. PO SCH (08:04)
[2019-03-11] MEDS: CETIRIZINE HCL 10 MG TABLET. PO SCH (08:04)
[2019-03-11] MEDS: hydroCHLOROthiazide 12.5 MG CAPSULE PO SCH (08:04)
[2019-03-11] MEDS: MULTIVITAMIN with MINERAL TABLET. PO SCH (08:05)
[2019-03-11] MEDS: FERROUS SULFATE 325 MG TABLET. PO SCH ×2 (08:05→15:59)
[2019-03-11] MEDS: SENNOSIDES/DOCUSATE 8.6/50MG TABLET. PO SCH (08:05)
[2019-03-11] MEDS: MELOXICAM 7.5 MG TABLET PO SCH (08:05)
[2019-03-11] MEDS: ASPIRIN ENTERIC COATED 325 MG TABLET.DR. PO SCH ×2 (08:05→20:17)
[2019-03-11] MEDS ORDERED: NON FORMULARY ITEM (Losartan/Hydrochlorothiazide (Losartan-Hctz 100-12.5 Mg Tab) 1 TAB) PO SCH (09:00)
--- NOTE | 2019-03-11 09:15 | NUR ---
Patient was assisted to the toilet twice to try to void this AM with only small dribbles. Bladder scan done which showed 436ml. Straight cath performed around 0910 and 600ml of anna/clear urine came out. Will continue to monitor.
[2019-03-11 09:28] LABS: HEMATOCRIT 25.4 % (36.0-47.0); HEMOGLOBIN 8.6 g/dL (12.0-15.5)
[2019-03-11] MEDS ORDERED: ONDANSETRON ODT 4 MG TAB.RAPDIS. PO PRN (12:00)
[2019-03-11] MEDS ORDERED: ONDANSETRON PF 4 MG/2 ML VIAL. IV PRN (12:00)
--- NOTE | 2019-03-11 15:35 | NUR ---
After patients afternoon therapy her IAC and hemovac were discontinued around 1520. No complications noted. Foam dressing applied. ARIELLE dressing is clean, dry, and intact with the green light flashing. Will continue to monitor.
[2019-03-11] MEDS ORDERED: BISACODYL 10 MG SUPP.RECT. PR PRN (16:00)
[2019-03-11 17:52] VITALS: BP 139/74
[2019-03-11] MEDS: TAMSULOSIN 0.4 MG CAP.ER.24H. PO SCH (17:56)
--- NOTE | 2019-03-11 18:08 | NUR ---
Patient is still having signs of urine retention at this time. Around 1700 she was able to start voiding in 100ml amounts which has occurred twice. Bladder scan revealed 576ml in her bladder after first void. Dr Raymond notified per telephone. Patient stated she does not want to get straight cathed at this time and used to take Flomax "many years ago" to help her void. Order for flomax initiated and started per Dr Raymond. Patient and her were notified of new order. Will continue to monitor.
[2019-03-11] MEDS: MONTELUKAST SODIUM 10 MG TABLET. PO SCH (20:17)
[2019-03-11] MEDS: AMITRIPTYLINE HCL 25 MG TABLET. PO SCH (20:17)
--- NOTE | 2019-03-11 20:30 | NUR ---
Voiding qs per toilet. "I threw that hat away, I'm doing good now." Dulcolax suppository given per request. Saline lock DC'd due to swelling. States she has a chronic cough w/ yellow phlegm. Percocet given for c/o pain 08/06.
[2019-03-11] MEDS: ZOLPIDEM 5 MG TABLET. PO PRN (21:36)
[2019-03-12] MEDS: oxyCODONE/APAP 5/325 1 TAB TABLET PO PRN ×4 (03:38→19:16)
[2019-03-12 06:00] VITALS: BP 145/76
--- NOTE | 2019-03-12 07:04 | NUR ---
22g saline lock started right forearm on 1st attempt. Morphine given IVP for c/o "stabbing" pain, rating 10/10.
[2019-03-12 08:09] LABS: HEMATOCRIT 27.6 % (36.0-47.0); HEMOGLOBIN 9.4 g/dL (12.0-15.5)
[2019-03-12] MEDS: MELOXICAM 7.5 MG TABLET PO SCH (08:13)
[2019-03-12] MEDS: ASPIRIN ENTERIC COATED 325 MG TABLET.DR. PO SCH ×2 (08:13→20:57)
[2019-03-12] MEDS: FLUoxetine HCL 20 MG CAPSULE PO SCH (08:13)
[2019-03-12] MEDS: TAMSULOSIN 0.4 MG CAP.ER.24H. PO SCH (08:13)
[2019-03-12] MEDS: SENNOSIDES/DOCUSATE 8.6/50MG TABLET. PO SCH (08:13)
[2019-03-12] MEDS: MULTIVITAMIN with MINERAL TABLET. PO SCH (08:14)
[2019-03-12] MEDS: CETIRIZINE HCL 10 MG TABLET. PO SCH (08:14)
[2019-03-12] MEDS: FAMOTIDINE 20 MG TABLET. PO SCH ×2 (08:14→20:57)
[2019-03-12] MEDS: FERROUS SULFATE 325 MG TABLET. PO SCH ×2 (08:14→16:46)
--- NOTE | 2019-03-12 08:38 | PDOC ---
PROGRESS NOTES Subjective Subjective Pain controlled. No major complaints. Objective Vital Signs Vital Signs Date Time Temp Pulse Resp B/P (MAP) Pulse Ox O2 Delivery O2 Flow Rate FiO2 03/12/19 07:10 Room Air 03/12/19 06:34 20 03/12/19 06:00 98.5 81 145/76 (99) 95 98.5 03/10/19 15:39 2.0 Physical Exam ARIELLE dressing intact. Pain catheter and drain have been removed. Calf soft and nontender. Good AROM of ankle. Minimal erythema/warmth. Not yet safely ambulating with walker. Requires PT or nursing assistance, and gait belt for safe transition from chair or bed to walker. Labs Laboratory Tests Test 03/11/19 08:35 03/12/19 07:36 Hemoglobin 8.6 g/dL (12.0-15.5) 9.4 g/dL (12.0-15.5) Hematocrit 25.4 % (36.0-47.0) 27.6 % (36.0-47.0) Mean Corpuscular Hemoglobin Concent 34 g/dL (31-37) 34 g/dL (31-37) Laboratory Tests Test 03/12/19 07:36 Hemoglobin 9.4 g/dL (12.0-15.5) Hematocrit 27.6 % (36.0-47.0) Mean Corpuscular Hemoglobin Concent 34 g/dL (31-37) Imaging Postoperative x-rays and report reviewed by me and show satisfactory alignment and no apparent complications. Assessment Assessment POD #2 TKA Plan Plan of Care Continue POC. Discharge planning for tomorrow. Aspirin 325 mg po BID and mobilization for DVT prophylaxis. MAYA WHITT MD March 12, 2019 08:38
[2019-03-12] MEDS: LOSARTAN POTASSIUM 50 MG TABLET. PO SCH (12:48)
[2019-03-12] MEDS: VERAPAMIL SR 120 MG TABLET.ER. PO SCH (12:48)
[2019-03-12] MEDS: hydroCHLOROthiazide 12.5 MG CAPSULE PO SCH (12:49)
[2019-03-12 18:23] VITALS: BP 144/78
--- NOTE | 2019-03-12 19:06 | PATHOLOGY ---
[facility] Accession Number: [id number] . 01 Material submitted: . knee - RIGHT KNEE BONE. Modifiers: right . 01 Clinical history: . None provided . 02 Diagnosis: Segments of bone and soft tissue, right total knee arthroplasty: - Advanced degenerative arthritis. - Mild nonspecific papillary chronic synovitis. . (JPM:mml; 03/12/2019) QLM/03/12/2019 . 02 Electronically signed: . Jack Coates MD, Pathologist NPI- [id number] . 01 Gross description: . Received in formalin labeled "Clari Jones, right knee bone," are multiple segments of bone, including tibial plateau, measuring 13.8 x 9.5 x 2.1 cm in aggregate dimensions. Soft tissue and meniscus are present. The specimen displays extensive eburnation of the articular surfaces. Bass Viol Repairer bone and soft tissue are submitted in cassette A1, following decalcification. ([facility]; 03/11/2019) XDC/XDC . 02 Pathologist provided ICD-10: M17.11, M65.9 . 02 CPT . 302679, 162794 Specimen Comment: A courtesy copy of this report has been sent to Specimen Comment: [phone], . Specimen Comment: Report sent to / DR SANABRIA Performed at: 01 [facility] [address], [place] [id number] MD Manuel Caicedo MD Phone: [phone] Performed at: 02 [facility] [address], [place] [id number] MD Jack Coates MD Phone: [phone]
--- NOTE | 2019-03-12 19:30 | NUR ---
C/o "sharp stinging pain right in the middle of my knee". "They better get me fixed before I go home today." Percocet given. Hemovac site cleansed w/ Chloraprep swab and gauze/foam dressing applied. "I think I have a fever and my leg feels hot, I should be taking antibiotics." Temp 98.6.
[2019-03-12] MEDS: AMITRIPTYLINE HCL 25 MG TABLET. PO SCH (20:56)
[2019-03-12] MEDS: ZOLPIDEM 5 MG TABLET. PO PRN (20:56)
[2019-03-12] MEDS: MONTELUKAST SODIUM 10 MG TABLET. PO SCH (20:56)
[2019-03-12] MEDS: ATORVASTATIN CALCIUM 10 MG TABLET. PO SCH (20:57)
[2019-03-13 06:00] VITALS: BP 153/76
[2019-03-13] MEDS: oxyCODONE/APAP 10/325 1 TAB TABLET PO PRN ×2 (06:00→12:27)
--- NOTE | 2019-03-13 06:05 | NUR ---
"That Ambien works great." Patient has dry cough this am. Reporting pain level 8/10, Percocet 10/325 given. Refused to sit in chair. TEDS, CHRISTY and SCD taken off. Call light in reach.
[2019-03-13 07:24] LABS: HEMATOCRIT 24.3 % (36.0-47.0); HEMOGLOBIN 8.3 g/dL (12.0-15.5)
[2019-03-13] MEDS: FERROUS SULFATE 325 MG TABLET. PO SCH (08:24)
[2019-03-13] MEDS: MULTIVITAMIN with MINERAL TABLET. PO SCH (08:24)
[2019-03-13] MEDS: VERAPAMIL SR 120 MG TABLET.ER. PO SCH (08:24)
[2019-03-13] MEDS: LOSARTAN POTASSIUM 50 MG TABLET. PO SCH (08:24)
[2019-03-13] MEDS: hydroCHLOROthiazide 12.5 MG CAPSULE PO SCH (08:25)
[2019-03-13] MEDS: FAMOTIDINE 20 MG TABLET. PO SCH (08:25)
[2019-03-13] MEDS: SENNOSIDES/DOCUSATE 8.6/50MG TABLET. PO SCH (08:25)
[2019-03-13] MEDS: FLUoxetine HCL 20 MG CAPSULE PO SCH (08:25)
[2019-03-13] MEDS: CETIRIZINE HCL 10 MG TABLET. PO SCH (08:25)
[2019-03-13] MEDS: MELOXICAM 7.5 MG TABLET PO SCH (08:25)
[2019-03-13] MEDS: ASPIRIN ENTERIC COATED 325 MG TABLET.DR. PO SCH (08:26)
[2019-03-13] MEDS: TAMSULOSIN 0.4 MG CAP.ER.24H. PO SCH (08:26)
--- NOTE | 2019-03-13 10:41 | PDOC ---
PROGRESS NOTES Subjective Subjective No complaints. Planning on discharge today to home with Home Health Objective Vital Signs Vital Signs Date Time Temp Pulse Resp B/P (MAP) Pulse Ox O2 Delivery O2 Flow Rate FiO2 03/13/19 08:25 Room Air 03/13/19 08:24 82 158/76 03/13/19 07:01 24 03/13/19 06:00 97.7 98 97.7 03/10/19 15:39 2.0 Physical Exam ARIELLE intact with spotty drainage only. Knee ROM approaching 0-90 already. Good AROM ankle. Calf soft and nontender. Minimal warmth or erythema. Labs Laboratory Tests Test 03/12/19 07:36 03/13/19 06:55 Hemoglobin 9.4 g/dL (12.0-15.5) 8.3 g/dL (12.0-15.5) Hematocrit 27.6 % (36.0-47.0) 24.3 % (36.0-47.0) Mean Corpuscular Hemoglobin Concent 34 g/dL (31-37) 34 g/dL (31-37) Laboratory Tests Test 03/13/19 06:55 Hemoglobin 8.3 g/dL (12.0-15.5) Hematocrit 24.3 % (36.0-47.0) Mean Corpuscular Hemoglobin Concent 34 g/dL (31-37) Assessment Assessment POD #3 TKA Plan Plan of Care Discharge planning for today. Continue PT and DVT prophylaxis. F/U 03/20/29 in office. MAYA WHITT MD March 13, 2019 10:41
[2019-03-13] MEDS ORDERED: OXYC1TAB22 PO (10:45)
--- NOTE | 2019-03-13 10:49 | SNU/HH DC ---
DISCHARGE WITH HOME HEALTH DISCHARGE INFORMATION: Condition on Discharge: Stable CODE STATUS: Code Status: Full HOME HEALTH: Face to Face: I certify this patient is under my care and that I, or a nurse practitioner or physician's cement tester assistant working with me, had a face to face encounter that meets the physician face to face encounter requirements with this patient on []. RN For Eval/Treatment: No Physical Therapy For: Evalulation/Treatment Occupational Therapy For: Evaluation/Treatment Pt Meets Homebound Status: Extreme weakness w/ amb., Limited distance walking POST DISCHARGE ORDERS: Activity Instructions for Disc: Progressive ambulation, Other, see below Weight Bearing Status after Di: As tolerated Bathing Instructions: Shower-keep dressing dry DIET AFTER DISCHARGE: Regular Wound/Incision Care: Keep wound/cast CDI, Other, see below (Trim ARIELLE tubing at 7 days postop (Saturday). Disconnect from battery pack. Throw battery pack away. Leave dressing intact otherwise.) FOLLOW-UP: Follow up with: Dr. Raymond 03/20/19 9 am. TREATMENT/EQUIPMENT ORDERS: Adaptive Equipment Issued: None, Front wheeled walker CERTIFICATION STATEMENT: Certification Statement: Certification Statement: Based on the above finding, I certify that this patient is confined to the home and needs intermittent shelter care, physical therapy and/or speech therapy, or continues to need occupational therapy.~ This patient is under my care, and I have initiated the establishment of the plan of care.~ This patient will be followed by myself or a community physician who will periodically review the plan of care. Home Meds Active Scripts Oxycodone/Apap 10-325 (PERCOCET 10-325 MG TABLET ) 1 Each Tablet, 1-2 TAB PO PRN Q4HRS PRN for PAIN for 14 Days, #80 TAB Take one or two tablets by mouth, every 4 hours as needed for pain Prov:MAYA RAYMOND MD 03/13/19 Reported Medications Acetaminophen (ACETAMINOPHEN) 500 Mg Tablet, 500 MG PO 1X for PREOP, TAB 03/10/19 Meloxicam (MELOXICAM) 15 Mg Tablet, 15 MG PO X1 for PREOP, TAB 03/10/19 Cyanocobalamin (Vitamin B-12) (Vitamin B-12) 500 Mcg Tab.subl, 500 MCG SL DAILY for supplement, TAB 02/19/19 Pravastatin Sodium (PRAVASTATIN SODIUM) 20 Mg Tablet, 1 TAB PO QODAY for cholesterol control, #30 TAB 5 Refills 02/19/19 Ranitidine Hcl (RANITIDINE HCL) 150 Mg Capsule, 1 CAP PO BID for GI, #60 CAP 5 Refills 02/19/19 Multivits-Min/Iron/FA/Lutein (Centrum Silver Women Tablet) 1 Each Tablet, 1 EACH PO DAILY for SUPPLEMENT, TAB 02/17/19 Calcium Carbonate (CALCIUM) 600 Mg Tablet, 600 MG PO DAILY for SUPPLEMENT, TAB 02/17/19 Montelukast Sodium (MONTELUKAST SODIUM TABLET) 10 Mg Tablet, 1 TAB PO DAILY for DIFFICULTY BREATHING, #30 TAB 5 Refills 02/17/19 Loratadine (LORATADINE) 10 Mg Tablet, 1 TAB PO DAILY for ALLERGIES, #30 TAB 5 Refills 02/17/19 Fluoxetine Hcl (FLUOXETINE HCL) 20 Mg Capsule, 1 CAP PO DAILY for INSOMNIA, #90 CAP 1 Refill 02/17/19 Verapamil Hcl (VERAPAMIL ER) 240 Mg Cap24h.pel, 120 MG PO DAILY for HTN, CAP.SR 02/17/19 Losartan/Hydrochlorothiazide (LOSARTAN-HCTZ 100-12.5 MG TAB) 1 Each Tablet, 1 TAB PO DAILY for HTN, #30 TAB 5 Refills 02/17/19 Ibuprofen (IBUPROFEN) 800 Mg Tablet, 800 MG PO TID PRN for INFLAMMATION, TAB 02/17/19 Amitriptyline Hcl (AMITRIPTYLINE HCL) 100 Mg Tablet, 1 TAB PO QHS for INSOMNIA, #30 TAB 1 Refill 02/17/19 MAYA RAYMOND MD March 13, 2019 10:49
[2019-03-13 11:00] VITALS: BP 154/78
[2019-03-13] MEDS ORDERED: ASPI325T11 PO (11:14)
--- NOTE | 2019-03-13 11:43 | PDOC3 ---
Discharge Summary Visit Information Date of Admission: March 10, 2019 Date of Discharge: March 13, 2019 Final Diagnosis osteoarthritis right knee Brief Hospital Course Allergies Allergies Coded Allergies Type Severity Reaction Last Updated Verified Penicillins Allergy Severe DIFFICULTY BREATHING 02/17/19 Yes iodine Allergy Intermediate Hives 02/17/19 Yes Vital Signs Vital Signs Date Time Temp Pulse Resp B/P (MAP) Pulse Ox O2 Delivery O2 Flow Rate FiO2 03/13/19 11:00 98.7 81 18 154/78 (103) 97 98.7 03/13/19 08:25 Room Air Lab Results Laboratory Tests Test 03/12/19 07:36 03/13/19 06:55 Hemoglobin 9.4 g/dL (12.0-15.5) 8.3 g/dL (12.0-15.5) Hematocrit 27.6 % (36.0-47.0) 24.3 % (36.0-47.0) Mean Corpuscular Hemoglobin Concent 34 g/dL (31-37) 34 g/dL (31-37) Laboratory Tests Test 03/13/19 06:55 Hemoglobin 8.3 g/dL (12.0-15.5) Hematocrit 24.3 % (36.0-47.0) Mean Corpuscular Hemoglobin Concent 34 g/dL (31-37) Brief Hospital Course 78 year old who presented with knee osteoarthritis, for elective total knee arthroplasty. The patient underwent total knee arthroplasty under general anesthesia the day of admission. Perioperative antibiotics and DVT prophylaxis were used. Postoperatively physical therapy and case management were consulted. The patient progressed and is stable for discharge. Discharge Information Condition at Discharge: Stable Follow Up: Weeks Disposition/Orders: D/C to Home w/ HH Scheduled Amitriptyline Hcl (Amitriptyline Hcl), 1 TAB PO QHS, (Reported) Aspirin (Aspirin Ec), 1 TAB PO BID, (Reported) Calcium Carbonate (Calcium), 600 MG PO DAILY, (Reported) Cyanocobalamin (Vitamin B-12) (Vitamin B-12), 500 MCG SL DAILY, (Reported) Fluoxetine Hcl (Fluoxetine Hcl), 1 CAP PO DAILY, (Reported) Loratadine (Loratadine), 1 TAB PO DAILY, (Reported) Losartan/Hydrochlorothiazide (Losartan-Hctz 100-12.5 Mg Tab), 1 TAB PO DAILY, (Reported) Meloxicam (Meloxicam), 15 MG PO X1, (Reported) Montelukast Sodium (Montelukast Sodium Tablet), 1 TAB PO DAILY, (Reported) Multivits-Min/Iron/FA/Lutein (Centrum Silver Women Tablet), 1 EACH PO DAILY, (Reported) Pravastatin Sodium (Pravastatin Sodium), 1 TAB PO QODAY, (Reported) Ranitidine Hcl (Ranitidine Hcl), 1 CAP PO BID, (Reported) Verapamil Hcl (Verapamil Er), 120 MG PO DAILY, (Reported) Scheduled PRN Oxycodone/Apap 10-325 (Percocet 10-325 Mg Tablet ), 1-2 TAB PO PRN Q4HRS PRN for PAIN Discontinued Medications Acetaminophen (Acetaminophen), 500 MG PO 1X, (Reported) Ibuprofen (Ibuprofen), 800 MG PO TID PRN for INFLAMMATION, (Reported) Patient Instructions Patient Instructions Patient Instructions Continue to WBAT with walker. Keep dressing dry and intact. F/U with Dr Raymond Physical therapy for TKA Continue DVT prophylaxis with aspirin BID MAYA RAYMOND MD March 13, 2019 11:43
--- NOTE | 2019-03-13 12:00 | NUR ---
Ambulating in room with walker. Steady gait. Anxious to go home today. Cont. monitor.
--- NOTE | 2019-03-13 13:35 | NUR ---
Report called to Irais MCCALLUM at the [facility].
--- NOTE | 2019-03-13 14:25 | NUR ---
Discharge instructions given with prescription. Answered questions and concerns. Verbalized understanding. Going home accompanied by spouse. Will follow with home health Shruti.
== END 2019-03-13 14:25 | disposition home health service (06) | DRG 470 ==
LOC: OPSVCIP 06:40 → 4 SOUTHEST 13:59
PROVIDERS: ADMIT Orthopaedic Surgery; ATTEND Orthopaedic Surgery
PROC: 0SRC0J9 Replacement of Right Knee Joint with Synthetic Substitute, Cemented, Open Approach (ICD-10-PCS; principal; 2019-03-10 10:00)
DX: M17.11 Unilateral primary osteoarthritis, right knee (principal); I10 Essential (primary) hypertension; R33.9 Retention of urine, unspecified; I34.0 Nonrheumatic mitral (valve) insufficiency; Z96.652 Presence of left artificial knee joint; Z88.0 Allergy status to penicillin; Z88.8 Allergy status to other drugs, medicaments and biological substances; Z79.899 Other long term (current) drug therapy
CPT/HCPCS: 36415; 73560; 85014; 85018; 86850; 86900; 86901; 88304; 88311; A7015; C1713; J0171; J0360; J0780; J1100; J1170; J1885; J2001; J2250; J2270; J2405; J2704; J2710; J2795; J3010; J3260; J3370; J3490; J7030; J7120; 97116; 97150; 97530; 97535; A4461; C1769

== ENCOUNTER → 2019-07-31 | Outpatient (CLI) | payer BC ==
[~2019-07-31] MED LIST changes: +ACET500T68 PO; -ACETAMINOPHEN 500 MG TABLET PO PRN; +ASPI325T11 PO; -CLINDAMYCIN 900MG PREMIX 50 ML IV PRN; +MELO15TA23 PO; -MELOXICAM 7.5 MG TABLET PO PRN; +MONT10TA49 PO; -MONT10TA9 PO; -MORPHINE SULFATE 5 MG, KETOROLAC 30MG VIAL 30 MG, ROPIVacaine 0.5% PF 60 ML, EPINEPHrin... INT ART ONE; +OXYC1TAB22 PO; -TRANEXAMIC ACID 1,000 MG in IV NS 50ML -- 1ST BAG INJ ONE
--- NOTE | 2019-07-31 13:09 | RAD ---
Abdominal ultrasound right upper quadrant: Reason for examination: Right upper quadrant/epigastric abdominal pain. The pancreas is poorly visualized due to bowel gas. Discharge portion of the pancreas shows no gross abnormality. No abnormality seen at the inferior vena cava. The liver is normal in size at 13 cm and appears homogeneous without a focal lesion. Portal vein is patent. Gallbladder is poorly visualized but shows no cholelithiasis or wall thickening but there may be sludge in the gallbladder. Common bile duct is not dilated at 2 mm. Right kidney measures 10.5 x 5.1 x 5.1 cm in greatest dimension with no renal mass or hydronephrosis evident. IMPRESSION: Gallbladder poorly visualized but no choleliths are seen in the bladder wall was not thickened. There may however be sludge in the gallbladder. Electronically signed by: Светлана Vallecillo MD (07/31/2019 1:06 PM) [id number]
== END | disposition home or self-care (01) ==
LOC: US 06:37
PROVIDERS: ATTEND Family Medicine
DX: R10.13 Epigastric pain (principal); R10.11 Right upper quadrant pain
CPT/HCPCS: 76705

== ENCOUNTER → 2019-11-18 | Outpatient (CLI) | payer BC ==
[~2019-11-18] MED LIST changes: +FLUO20CA20 PO; -FLUO20CA8 PO
--- NOTE | 2019-11-18 11:22 | RAD ---
LUMBAR SPINE WO CONTRAST History: Chronic low back pain. Left leg radiculopathy. Technique: Multiplanar, multi sequential MR imaging was performed of the lumbar spine. Comparison: None Findings: Grade 1 anterolisthesis L3 on L4 and L4 on L5. Minimal grade 1 anterolisthesis L2 on L3. Straightening of the normal lumbar lordosis. Normal vertebral body height. No fracture. Degenerative endplate edema L2-L3 and L3-L4 as well as L5-S1. No pathologic marrow replacing process. Conus terminates at the normal location. No evidence of nerve root clumping. L1-L2: Broad-based posterior disc bulge. Moderate to advanced facet arthropathy. Severe subarticular recess narrowing. Mild to moderate canal narrowing. Superimposed left foraminal disc protrusion. Mild left neuroforaminal narrowing. No right neuroforaminal narrowing. L2-L3: Broad-based disc bulge. Advanced right and moderate left facet arthropathy. Bilateral subarticular recess narrowing. No canal narrowing. No neuroforaminal narrowing. L3-L4: Anterolisthesis. Disc uncovering. Disc bulge. Advanced facet arthropathy. Right facet joint effusion. Subarticular recess narrowing. Mild canal narrowing. Mild right neuroforaminal narrowing. No left neuroforaminal narrowing. L4-L5: Anterolisthesis. Disc uncovering. Postoperative changes laminectomy. Severe left subarticular recess narrowing. Advanced facet arthropathy. No canal narrowing. Superimposed left foraminal disc protrusion contributing to to moderate left neuroforaminal narrowing with abutment of the exiting left L4 nerve root. Mild right neuroforaminal narrowing. L5-S1: Broad-based disc bulge. Moderate facet arthropathy. Subarticular recess narrowing. No canal narrowing. Mild left and mild to moderate right neuroforaminal narrowing. Impression: 1. Moderate multilevel lumbar spondylosis with multilevel grade 1 anterolisthesis contributing to subarticular recess and canal narrowing most prominent L1-L2 and L3-L4. 2. L4-L5 left neural foraminal disc protrusion contacting the exiting left L4 nerve root. Correlate for radiculopathy. 3. Additional multilevel neuroforaminal narrowing. Electronically signed by: Jose Angel Romero DO (11/18/2019 11:19 AM) [facility]
== END | disposition home or self-care (01) ==
LOC: MRI 13:49
PROVIDERS: ATTEND Nurse Practitioner Family
DX: M47.26 Other spondylosis with radiculopathy, lumbar region (principal); M51.16 Intervertebral disc disorders with radiculopathy, lumbar region; M48.061 Spinal stenosis, lumbar region without neurogenic claudication
CPT/HCPCS: 72148

== ENCOUNTER → 2019-12-08 | Outpatient (CLI) | payer BC ==
[~2019-12-08] MED LIST changes: +CRESTOR5 MG PO; +CYAN100031 PO; +DOCU50CA9 PO; +PANT40TA77 PO; +TAMS0.4C97 PO; +TIZA4TAB2 PO; +VERA180T6 PO; +methylPREDNISolone ACETATE 40 MG/ML VIAL. ONE; +methylPREDNISolone ACETATE 80 MG/ML VIAL. ONE
--- NOTE | 2019-12-08 14:17 | PAIN ---
DATE OF SERVICE: 12/08/2019 INITIAL CONSULTATION FOR PAIN CLINIC CHIEF COMPLAINT: Low back and left lower extremity pain. HISTORY OF PRESENT ILLNESS: This is a 79-year-old female who presents with history of pain in the low back and left lower extremity for about 6 weeks, not a result of any specific injury or action that she is aware of. It came up over time, gradually getting worse across the low back, in the left lower extremity, posterior gluteus, posterolateral thigh, lateral anterior thigh, posterior calf to the level of the ankle on the left side. The patient reports it is aching and sharp, stinging, shooting, cramping at times in the back itself as well. The patient reports again no specific accident or injury. Reports it awakens her from sleep at least once or twice at night, does not affect her bowel or bladder control, but does affect her ability to walk. She is not using any assistive devices to ambulate, however. The patient has tried physical therapy in the past, nothing recently but she is doing some stretching and strengthening exercises on her own which she reports did not help significantly. The patient did have an MRI scan of the lumbar spine showing degenerative changes throughout the lumbar spine with no significant L4-L5 with superimposed left foraminal disk protrusion contributing to moderate left neural foraminal narrowing with abutment of the exiting left L4 nerve root, broad-based disk bulge at L3-L4 as well as L5-S1 with mild left and ifyb-[id number] right neural foraminal narrowing at L5-S1 as well. The patient rates her disability rating from 0-10, 10 being the worst, is a 5-10 with family home responsibilities, 5 with social activity, 6-10 with occupation, 4 with sexual behavior, 3 with self-care and 6 with life support activities. The patient reports no loss of motor function, but significant fatigability with walking, standing, changing positions, better with sitting or lying down, but it can awaken her from sleep at least once or twice a night. PAST MEDICAL HISTORY: Significant for hearing loss, glasses, hypertension, arthritis and osteoporosis. PREVIOUS SURGERY: Include lumbar fusion in 1999, lumbar laminectomy that was in 1999, bilateral knee replacements, carpal tunnel repair bilaterally, rotator cuff repair on the right, previous hysterectomy and partial thyroidectomy. CURRENT MEDICATIONS: Include Zanaflex, stool softener, Flomax, ibuprofen, verapamil, vitamin B12, pantoprazole, amitriptyline, losartan, calcium, multivitamins, fluoxetine and montelukast. ALLERGIES: THE PATIENT IS ALLERGIC TO IODINE AND PENICILLIN. FAMILY HISTORY: Significant for heart disease and cancer. SOCIAL HISTORY: The patient does not drink alcohol, does not smoke, does not use any illegal, illicit or recreational drugs. She is , lives with her spouse, lives locally in [place], [place] and is retired. REVIEW OF SYSTEMS: The patient's review of systems is positive for those items mentioned in history of present illness. All systems reviewed and otherwise negative. It is complete, full and well documented on the patient's chart. PHYSICAL EXAMINATION: VITAL SIGNS: The patient's blood pressure is 140/83, pulse is 81, respirations 18, temperature 98.3 degrees Fahrenheit, height is 5 feet 3 inches, and 192 pounds. GENERAL: The patient is awake, alert, oriented, appropriate, very pleasant demeanor. HEENT: Head shows normocephalic, atraumatic. Extraocular movements are intact and symmetrical. Oral cavity: Mucous membranes moist and pink. Dentition is intact. NECK: Shows anterior throat supple without palpable lymphadenopathy noted. Swallow reflex symmetrical. CHEST: Shows normal on inspection. Breath sounds clear to auscultation bilaterally. HEART: Shows S1, S2 clear. No murmurs auscultated. ABDOMEN: Soft, nontender, nondistended. No palpable organomegaly is noted. No rebound or guarding demonstrated. BACK: Shows spine grossly in the midline. Normal appearing thoracic kyphosis and minor flattening of lumbar lordotic curvature with well-healed surgical scar noted. Lumbar paraspinous muscle shows symmetrical on inspection, with palpation shows some moderate tenderness diffusely throughout the upper, middle and lower distribution of paraspinous muscles, but only diffusely without radiation, without asymmetry, without trigger points. No tenderness over the spinous processes, sacrum or sacroiliac regions. The patient has good rotational motion of lumbar spine, both laterally greater than 10 degrees right and left as well as extension greater than 10 degrees, forward flexion 45 degrees without significant pain reported. EXTREMITIES: Lower extremities show deep tendon reflexes 1+ in the patellar and tendo calcaneus tendons. Well-healed surgical scar is noted over both of the knees. Motor exam is strong with approximately 4 on a scale of 5, but equal and symmetrical with dorsiflexion, extension, quadriceps and hamstring flexion. Peripheral pulses are 1+ posterior tibia. No peripheral edema is noted bilaterally. Lower extremities are warm and dry to touch, equal in color and appearance. Straight leg raise noted to be negative for reproduction of radicular symptoms. Gaenslen's and Clint's maneuvers are negative bilaterally as well. The patient's skin shows warm and dry, good turgor. No sores, rashes or bruising bilaterally. The patient is able to stand, stand on her toes without significant loss of balance. She walks with a normal-appearing gait, not using any assistive devices. IMPRESSION: 1. This is a 79-year-old female with about 6-week' history of increasing pain in the low back, left lower extremity in a radicular fashion. 2. MRI scan of lumbar spine as noted. 3. Hypertension. 4. Arthritis. PLAN: Options were discussed with the patient including conservative medical managements, physical therapies and interventional techniques. She would like to pursue interventional techniques. We discussed a lumbar epidural steroid injection using description as well as anatomical models to describe the procedure. Risks were then discussed including, but not limited to bleeding, infection, possibility of epidural hematoma, subsequent neurological compromise, dural puncture, headaches, spinal cord and/or nerve damage, side effects of steroid medication and poor results regarding pain control. The patient understands and wished to proceed. The patient will return to clinic in approximately 2 weeks for followup. She was counseled on return appointment, activity level and side effects to be aware of. DIAGNOSES: Lumbar radiculopathy with lumbar degenerative disk disease and lumbar post-laminectomy syndrome. PROCEDURE: Lumbar epidural steroid injection, translaminar approach at the L4-L5 level using C-arm fluoroscopic guidance under sterile prep and drape using local anesthetic. MEDICATION INJECTED: A total of 120 mg of Depo-Medrol plus 10 mL of preservative-free normal saline and 2 mL of contrast. CONDITION AT DISCHARGE: Stable. The patient tolerated the procedure well, had no complications. ASHLEY DINH MD DR: LINDA/michael JOB#: [id number] / [id number] DOMINIQUE Locke MD
== END ==
LOC: PNCL 09:07
PROVIDERS: ATTEND Anesthesiology
DX: M51.16 Intervertebral disc disorders with radiculopathy, lumbar region (principal); M96.1 Postlaminectomy syndrome, not elsewhere classified; I10 Essential (primary) hypertension; E89.0 Postprocedural hypothyroidism; Z87.39 Personal history of other diseases of the musculoskeletal system and connective tissue; Z88.0 Allergy status to penicillin; Z88.8 Allergy status to other drugs, medicaments and biological substances; Z96.653 Presence of artificial knee joint, bilateral; Z90.710 Acquired absence of both cervix and uterus
CPT/HCPCS: 62323; J1030; J1040

== ENCOUNTER → 2019-12-22 | Outpatient (CLI) | payer BC ==
[~2019-12-22] MED LIST changes: +IOHEXOL 180 MG/ML 10 ML VIAL. ONE
--- NOTE | 2019-12-22 10:32 | PAIN ---
DATE OF SERVICE: 12/22/2019 PROGRESS NOTE FOR PAIN CLINIC DIAGNOSES: Lumbar radiculopathy with lumbar degenerative disk disease and lumbar post-laminectomy syndrome. HISTORY OF PRESENT ILLNESS: The patient is a 79-year-old female who returns for followup status post lumbar epidural steroid injection x 1. The patient returns reporting about 50% improvement in the low back and left lower extremity. The patient reports increasing her activity with greater distance walking and doing work and household activities with greater ease and comfort, traveling with greater ease, sleeping well at night about every 6 hours, does not awaken her from the pain in her left leg and low back. The patient reports the pain is a 10 on a scale of 10 at its worst over the past week, 5 on average, 2 at its least and is a 2 today. The patient reports it is stabbing pain radiating to the posterior gluteus, left lateral thigh, lateral anterior thigh, medial thigh and into the calf on the left leg, no new motor or sensory deficits, no new bowel or bladder incontinence. PHYSICAL EXAMINATION: VITAL SIGNS: The patient's blood pressure is 188/99, pulse 77, respirations 18, temperature 98.2 degrees Fahrenheit, height is 5 feet 2 inches, weight is 195 pounds. GENERAL: The patient is awake, alert, oriented, appropriate, very pleasant demeanor. HEENT: Head shows normocephalic, atraumatic. Extraocular movements are intact and symmetrical. Oral cavity: Mucous membranes moist and pink. Dentition is intact. NECK: Shows anterior throat is supple. CHEST: Shows normal on inspection. Breath sounds are clear bilaterally. HEART: Shows S1, S2 clear. No murmurs auscultated. ABDOMEN: Obese, soft, nontender, nondistended. BACK: Shows spine grossly in the midline. Slight exaggeration of thoracic kyphosis and minor flattening of lumbar lordotic curvature. Lumbar paraspinous muscle shows symmetrical on inspection and well-healed surgical scar present. With palpation shows some moderate tenderness, but only diffusely in the inferior aspect of the lumbar paraspinous musculature that is on the left side greater than the right, but present bilaterally without asymmetry or trigger points. The patient shows full rotational motion both laterally as well as extension and flexion of lumbar spine without significant increase in pain. EXTREMITIES: Lower extremities show deep tendon reflexes at 1+ in the patellar and tendo-calcaneus tendons are equal. Motor exam is approximately 4 on a scale of 5, but symmetrical dorsiflexion, extension, quadriceps and hamstring flexion. Peripheral pulses are 1+ posterior tibia. No peripheral edema is noted bilaterally. Options were discussed with the patient. The patient's old chart was reviewed as her current medication regimen updated. Current review of systems updated today as well. We will proceed with a second lumbar epidural steroid injection today with fluoroscopic guidance. Risks were again discussed including, but not limited to bleeding, infection, possibility of epidural hematoma, subsequent neurological compromise, dural puncture, headaches, spinal cord and/or nerve damage, side effects of steroid medication and poor results regarding pain control. The patient understands and wished to proceed. The patient will return to clinic in approximately 2 weeks for followup. She was counseled on return appointment, activity level and side effects to be aware of. DIAGNOSES: Lumbar radiculopathy with lumbar degenerative disk disease, post-lumbar laminectomy syndrome. PROCEDURE: Lumbar epidural steroid injection, translaminar approach L4-L5 level using C-arm fluoroscopic guidance under sterile prep and drape using local anesthetic. MEDICATION INJECTED: A total of 120 mg of Depo-Medrol plus 10 mL of preservative-free normal saline and 2 mL of contrast. CONDITION AT DISCHARGE: Stable. The patient tolerated the procedure well, had no complications. ASHLEY DINH MD DR: LINDA/michael JOB#: [id number] / [id number]
== END ==
LOC: PNCL 08:46
PROVIDERS: ATTEND Anesthesiology
DX: M51.16 Intervertebral disc disorders with radiculopathy, lumbar region (principal); M96.1 Postlaminectomy syndrome, not elsewhere classified
CPT/HCPCS: 62323; J1030; J1040; Q9965

== ENCOUNTER → 2020-01-11 | Outpatient (CLI) | payer BC ==
[~2020-01-11] MED LIST changes: -IOHEXOL 180 MG/ML 10 ML VIAL. ONE; -methylPREDNISolone ACETATE 40 MG/ML VIAL. ONE; -methylPREDNISolone ACETATE 80 MG/ML VIAL. ONE
--- NOTE | 2020-01-11 09:49 | PAIN ---
DATE OF SERVICE: 01/11/2020 PROGRESS NOTE FOR PAIN CLINIC DIAGNOSES: Lumbar radiculopathy with lumbar degenerative disk disease and lumbar post-laminectomy syndrome. HISTORY OF PRESENT ILLNESS: The patient is a 79-year-old female who returns for followup status post lumbar epidural steroid injection x 2. The patient reports about 80%-90% improvement in her low back and left lower extremity pain. The patient reports very minimal pain at this time. She is increasing her activity with greater ease and comfort, doing household activities. She has been baking bread when she is standing for a prolonged period of encounter with much greater ease and comfort, sleeping well at night. The patient is very pleased with her progress, reports she is not having any new motor or sensory deficits, no new bowel or bladder incontinence. Rates her pain as a 5 on a scale of 10 at its absolute worst over the past week, 4 on average, 3 at its least and is a 3 today. The patient reports it is an aching pain in the low back and the left leg, but only very occasionally. The patient reports she has been noticing some fluid retention over the past week to 2 weeks, slightly more on her left ankle than her right, but present bilaterally. Otherwise, the patient is doing very well. No new changes. PHYSICAL EXAMINATION: VITAL SIGNS: The patient's blood pressure is 139/89, pulse 67, respirations 20, temperature 98.0 degrees Fahrenheit, weight is 203 pounds. GENERAL: The patient is awake, alert, oriented, appropriate, very pleasant demeanor. HEENT: Head is normocephalic, atraumatic. Extraocular movements are intact and symmetrical. Oral cavity shows mucous membranes are moist and pink. Anterior throat is supple. CHEST: Shows normal on inspection. Breath sounds clear bilaterally. HEART: Shows S1, S2 clear. ABDOMEN: Soft, nontender. BACK: Shows spine grossly in midline. Lumbar paraspinous muscle shows symmetrical on inspection, with palpation some mild tenderness, but only very diffusely in the low lumbar distribution, good rotational motion both laterally as well as extension and flexion without difficulty. EXTREMITIES: The patient's lower extremities show deep tendon reflexes 1+ in the patellar and tendo calcaneus tendons. Motor exam is approximately 4 on a scale of 5, but symmetrical and equal right and left with dorsiflexion, extension, quadriceps and hamstring flexion. The patient does have approximately 1+ pitting edema in the bilateral ankles extending about one-third the distance to the knee on the left side of the anterior tibia and only in the ankle on the right side. Options were discussed with the patient. The patient's old chart was reviewed as her current medication regimen updated. Current review of systems updated today as well. We will hold on any further injections at this time as she is doing quite a bit better. We will have her increase activity as tolerated, maintain stretching and strengthening exercises as well. The patient will follow up at this time on as needed basis. ASHLEY DINH MD DR: LINDA/michael JOB#: [id number] / [id number]
== END | disposition home or self-care (01) ==
LOC: PNCL 08:22
PROVIDERS: ATTEND Anesthesiology
DX: M51.16 Intervertebral disc disorders with radiculopathy, lumbar region (principal)
CPT/HCPCS: G0463

== ENCOUNTER → 2020-03-28 | Outpatient (CLI) | payer BC ==
--- NOTE | 2020-03-28 09:43 | CARD ---
MR#: [id number] Date of Study: 03/28/2020 Ordering Physician: NINO RENTERIA, Referring Physician: NINO RENTERIA, Tech: Aisha Capps [facility] APPROVED REPORT EXAM: Two-dimensional and M-mode echocardiogram with Doppler and color Doppler. Other Information Quality : Good INDICATION Cardiac Disease: CAD 2D DIMENSIONS RVDd2.7 (2.9-3.5cm)Left Atrium(2D)3.5 (1.6-4.0cm) IVSd1.0 (0.7-1.1cm)Aortic Root(2D)2.9 (2.0-3.7cm) LVDd5.2 (3.9-5.9cm)LVOT Diameter2.3 (1.8-2.4cm) PWd1.0 (0.7-1.1cm)LVDs4.2 (2.5-4.0cm) FS (%) 25.0 %SV53.9 ml LVEF(%)50.0 (>50%) Aortic Valve AoV Peak Lino.123.2cm/sAoV VTI25.0cm AO Peak GR.6.1mmHgLVOT Peak Lino.94.5cm/s AO Mean GR.3mmHgAVA (VMAX)3.07cm2 KANU (VTI)3.50cm2 Mitral Valve MV E Hwphbhuh72.9cm/sMV DECEL [id number] MV A Nmzqevwc895.4cm/sE/A Ratio0.7 Tricuspid Valve TR P. Pkbgxauq557mj/sRAP SENIZSMA4xcVr TR Peak Gr.09gzIhEKTS24cvQm Pulmonary Vein S1 Ljluuako56.3cm/sD2 Xxbpvbgk61.4cm/s LEFT VENTRICLE The left ventricle is normal size. There is normal left ventricular wall thickness. Left ventricle sy stolic function is low normal. The Ejection Fraction is 50-55%. There is normal LV segmental wall mot ion. Transmitral Doppler flow pattern is Grade I-abnormal relaxation pattern. RIGHT VENTRICLE The right ventricle is normal size. The right ventricular systolic function is normal. ATRIA The left atrium size is normal. The right atrium size is normal. The interatrial septum is intact wit h no evidence for an atrial septal defect or patent foramen ovale as noted on 2-D or Doppler imaging. AORTIC VALVE The aortic valve is calcified but opens well. Doppler and Color Flow revealed trace aortic regurgitat ion. There is no significant aortic valvular stenosis. MITRAL VALVE The mitral valve is calcified but opens well. Mitral annular calcification is mild. There is no evide nce of mitral valve prolapse. There is no mitral valve stenosis. Doppler and Color-flow revealed mild mitral regurgitation. TRICUSPID VALVE The tricuspid valve is normal in structure and function. Doppler and Color Flow revealed mild tricusp id regurgitation. The PA pressure was estimated at 31 mmHg. There is no tricuspid valve stenosis. PULMONIC VALVE The pulmonic valve is not well visualized. Doppler and Color Flow revealed trace to mild pulmonic geovany vular regurgitation. There is no pulmonic valvular stenosis. GREAT VESSELS The aortic root is normal in size. The ascending aorta is mildly dilated at 3.7 cm. The IVC is normal in size and collapses >50% with inspiration. PERICARDIAL EFFUSION There is no evidence of significant pericardial effusion. Critical Notification Critical Value: No <Conclusion> Left ventricle systolic function is low normal. The Ejection Fraction is 50-55%. There is normal LV segmental wall motion. The ascending aorta is mildly dilated at 3.7 cm. Signed by : Nino Renteria, Electronically Approved : 03/28/2020 09:42:24
== END | disposition home or self-care (01) ==
LOC: ECHO 07:24
PROVIDERS: ATTEND Internal Medicine Cardiovascular Disease
DX: I08.8 Other rheumatic multiple valve diseases (principal); I25.10 Atherosclerotic heart disease of native coronary artery without angina pectoris
CPT/HCPCS: 93306

== ENCOUNTER → 2020-05-12 | Outpatient (CLI) | payer BC ==
[~2020-05-12] MED LIST changes: -CALC600T4 PO; +CALC600T5 PO
--- NOTE | 2020-05-12 11:39 | RAD ---
Examination: Unilateral venous Doppler. Technique: Ultrasound evaluation of the left lower extremity was performed from the groin to the upper calf with das scale, spectral and color doppler evaluation. Indication: Leg swelling Comparison: None available Findings: There is normal venous flow and compressibility of left common femoral vein, femoral vein, popliteal vein, and visualized proximal calf veins. Impression: No evidence for deep vein thrombosis of left lower extremity from the level of the calf veins to the groins. Electronically signed by: Chace Herron MD (05/12/2020 11:37 AM) [id number]
== END | disposition home or self-care (01) ==
LOC: US 10:48
PROVIDERS: ATTEND Nurse Practitioner Family
DX: M79.662 Pain in left lower leg (principal); R22.42 Localized swelling, mass and lump, left lower limb
CPT/HCPCS: 93971

== ENCOUNTER → 2020-07-14 | Outpatient (CLI) | payer BC ==
[~2020-07-14] MED LIST changes: -CALC600T5 PO; +CALC600T6 PO
--- NOTE | 2020-07-14 17:30 | RAD ---
DATE: 07/14/2020 8:30 AM EXAM: MAMMO JEREL SCREENING BILATERAL HISTORY: Screening COMPARISON: 10/07/2017 Bilateral CC and MLO views of the breasts were performed. Bilateral breast tomosynthesis was performed in CC and MLO projections. This study was interpreted with the benefit of Computerized Aided Detection (CAD). FINDINGS: Breast Density: FATTY The Breast Parenchyma is primarily fatty replaced. Breast parenchyma level density A. No suspicious masses, microcalcifications or architectural distortion is present to suggest malignancy in either breast. The visualized axillae are unremarkable. IMPRESSION: No mammographic evidence of malignancy. BI-RADS CATEGORY: 1 NEGATIVE RECOMMENDED FOLLOW-UP: 12M 12 MONTH FOLLOW-UP Annual screening mammography is recommended, unless clinically indicated sooner based on symptoms or change in physical exam. PQRS compliance statement: Patient information was entered into a reminder system with a target due date for the next mammogram. Mammography is a sensitive method for finding small breast cancers, but it does not detect them all and is not a substitute for careful clinical examination. A negative mammogram does not negate a clinically suspicious finding and should not result in delay in biopsying a clinically suspicious abnormality. "Our facility is accredited by the [employer] Mammography Program."
== END | disposition home or self-care (01) ==
LOC: MAMMO 08:17
PROVIDERS: ATTEND Family Medicine
DX: Z12.31 Encounter for screening mammogram for malignant neoplasm of breast (principal)
CPT/HCPCS: 77063; 77067

== ENCOUNTER → 2020-08-16 | Outpatient (CLI) | payer BC ==
[~2020-08-16] MED LIST changes: +ASPI-630 PO; +IOHEXOL 180 MG/ML 10 ML VIAL. ONE; +methylPREDNISolone ACETATE 40 MG/ML VIAL. ONE; +methylPREDNISolone ACETATE 80 MG/ML VIAL. ONE
--- NOTE | 2020-08-16 11:15 | PDOC ---
Progress Note - Pain Clinic Date of Service: DOS: DATE: 08/16/20 TIME: 11:11 Diagnosis: Dx: Lumbar radiculopathy with lumbar degenerative disc disease and lumbar postlaminectomy syndrome History or Present Illness: HPI: 79-year-old female returns follow-up status post lumbar epidural steroid injection times 2. Patient reports did very well by 80% improvement until the last 2 weeks or so the pain began returning the low back and left lower extremity in the posterior gluteus posterior thigh posterior calf and lateral calf on the left side rated as a 9 on scale 10 is worse over the past week 8 on average and a 5 at its least is a 5 today. Patient scribes pain is aching and stabbing in the left lower extremity in the low back as well as cramping and burning in the left leg and radiating becoming more constant with activity. Initially patient was doing much better with distance walking doing household activities recreational activities try with greater ease and comfort still does not awaken her from sleep at night feels much better with sitting or laying down. Patient reports no new motor or sensory deficits no new bowel or bladder con's or other complaints. Physical Exam: VS: Blood pressure is 132/73 pulse 73 respirations 18 temperature 90.1 F height is 5 feet 2 inches weight is 2 0 0 pounds PE: PHYSICAL EXAMINATION: GENERAL: The patient is awake, alert, oriented, appropriate, very pleasant demeanor HEENT: Shows normocephalic, atraumatic. Extraocular movements are intact and symmetrical. Oral cavity: Mucous membranes moist and pink. NECK: Shows anterior throat supple without palpable lymphadenopathy noted. Swallow reflex symmetrical. CHEST: Shows normal on inspection. Breath sounds are clear bilaterally, no rales rhonchi or wheezes auscultated. HEART: Shows S1, S2 clear. No murmurs auscultated. ABDOMEN: Soft, nontender, nondistended, obese. No palpable organomegaly is noted. No rebound or guarding demonstrated. BACK: Shows spine grossly in the midline. Normal-appearing cervical lordotic curvature. There is slightly increased thoracic kyphosis, some minor flattening of the lumbar lordotic curvature. Lumbar paraspinous muscles show symmetrical on inspection, with well-healed midline surgical scar, on palpation shows some moderate tenderness diffusely throughout the upper, middle and lower distribution of the paraspinous muscles bilaterally and also into the lower thoracic paraspinous musculature, firm and tender, but without specific trigger points, without radiation of pain. The patient has good rotational motion of the lumbar spine, both laterally as well as extension and flexion without significant difficulty. No tenderness over the spinous processes, sacrum or sacroiliac regions. EXTREMITIES: Lower extremities show deep tendon reflexes 1+ in the patellar and tendo calcaneus tendons. Motor exam is 4 on a scale of 5 with right dorsifle xion, extension, quadriceps and hamstring flexion and 4/5 on the left. Peripheral pulses are 1 posterior tibial. No peripheral edema is noted bilaterally. Lower extremities are warm and dry to touch, equal in color and appearance. SKIN: Shows warm and dry, good turgor. No edema. No sores, rashes or bruising throughout. Procedure: Procedure: Options were discussed with the patient. Patient's old chart was reviewed as her current medication regimen updated current review of systems updated today as well. We will proceed with a lumbar epidural steroid injection today with fluoroscopic guidance of the first in the series. Risks were discussed including but not limited to: Bleeding, infection, possibility of epidural hemat [place] and subsequent neurological compromise, dural puncture, headaches, spinal cord and/or nerve damage, side effects of steroid medication, and poor results regarding pain control. Patient understands wished to proceed. Patient will return to the clinic in approximate 2 weeks for follow-up was counseled as return appointment activity level and side effects to be aware of. Medication Injected: Med Injected: Procedure is lumbar epidural steroid injection under local anesthetic using sterile prep and drape at the L5-S1 level using C-arm fluoroscopic guidance in both AP and lateral views medications injected is 120 mg Depo-Medrol + 10 mL preservative-free normal saline and 2 mL contrast- condition at discharge is stable patient tolerated procedure well had no complications. Condition at Discharge: Condition at Discharge: Condition at discharge is stable patient tolerated procedure well had no complications. ASHLEY DINH MD Aug 16, 2020 11:15
== END ==
LOC: PNCL 09:44
PROVIDERS: ATTEND Anesthesiology
DX: M51.16 Intervertebral disc disorders with radiculopathy, lumbar region (principal); M46.1 Sacroiliitis, not elsewhere classified; I10 Essential (primary) hypertension; E78.5 Hyperlipidemia, unspecified; K21.9 Gastro-esophageal reflux disease without esophagitis; Z88.0 Allergy status to penicillin; Z88.8 Allergy status to other drugs, medicaments and biological substances; Z87.891 Personal history of nicotine dependence; Z79.82 Long term (current) use of aspirin; Z79.899 Other long term (current) drug therapy
CPT/HCPCS: 62323; J1030; J1040; Q9965

== ENCOUNTER → 2020-08-22 | Outpatient (CLI) | payer BC ==
[~2020-08-22] MED LIST changes: -IOHEXOL 180 MG/ML 10 ML VIAL. ONE; -methylPREDNISolone ACETATE 40 MG/ML VIAL. ONE; -methylPREDNISolone ACETATE 80 MG/ML VIAL. ONE
--- NOTE | 2020-08-22 10:40 | RAD ---
CT CHEST WO CONTRAST INDICATION: DYSPNEA COMPARISON STUDY: Radiograph 02/14/2019. TECHNIQUE: Unenhanced axial images were obtained through the lungs and upper abdomen. Coronal and sagittal multiplanar reconstructions were also obtained. PQRS compliance statement: One or more of the following individualized dose reduction techniques were utilized for this examination: 1. Automated exposure control 2. Adjustment of the mA and/or kV according to patient size 3. Use of iterative reconstruction technique FINDINGS: Lungs and Airways: No pulmonary mass or consolidation. Normal central airways. Pleura: The pleural spaces are normal. Heart and Mediastinum: Subcentimeter left thyroid nodule, not requiring further evaluation based on size criteria. Right thyroidectomy. No axillary or supraclavicular lymphadenopathy. No mediastinal, hilar or retrocrural lymphadenopathy. Cardiomegaly. No pericardial effusion. Coronary artery atherosclerotic disease. Atherosclerosis of the thoracic aorta. Abdomen: The visualized abdominal organs demonstrate no abnormality. Bones and Soft Tissues: Degenerative changes of the spine. Right convex thoracic curvature. IMPRESSION: 1. No pulmonary mass or consolidation. 2. No thoracic lymphadenopathy. Electronically signed by: Jose Knox MD (08/22/2020 10:37 AM) [id number]
== END ==
LOC: CT 09:36
PROVIDERS: ATTEND Internal Medicine Pulmonary Disease
DX: E04.1 Nontoxic single thyroid nodule (principal); I25.10 Atherosclerotic heart disease of native coronary artery without angina pectoris; I70.0 Atherosclerosis of aorta; M43.8X4 Other specified deforming dorsopathies, thoracic region; M47.819 Spondylosis without myelopathy or radiculopathy, site unspecified; Z90.89 Acquired absence of other organs
CPT/HCPCS: 71250

== ENCOUNTER → 2020-08-30 | Outpatient (CLI) | payer BC ==
[~2020-08-30] MED LIST changes: +IOHEXOL 180 MG/ML 10 ML VIAL. ONE; +methylPREDNISolone ACETATE 40 MG/ML VIAL. ONE; +methylPREDNISolone ACETATE 80 MG/ML VIAL. ONE
--- NOTE | 2020-08-30 10:56 | PDOC ---
Progress Note - Pain Clinic Date of Service: DOS: DATE: 08/30/20 TIME: 10:53 Diagnosis: Dx: Lumbar radiculopathy with lumbar degenerative disease and lumbar postlaminectomy syndrome History or Present Illness: HPI: 79-year-old female returns follow-up status post lumbar epidurals or injection x1. Patient reports about 75% improvement after first injection still some pain low back left lower extremity but much better than it was patient reports he can increase her distance walking doing household activities working activities been baking quite a bit for her zoroastrian and feeling much better. Patient reports still some pain in the low back left lower extremity posterior gluteus posterior thigh lateral thigh anterior thigh medial thigh and posterior calf much better than it was patient reports a 7 on scale 10 is worse over the past week for an average 3 at its least is a 4 today patient was aching on and off in intensity worse with standing walking does not awaken her from sleep at night. Patient reports no new motor or sensory deficits no new bowel or bladder con's or other complaints. Physical Exam: VS: Blood pressure 147/74 pulse 67 respirations 18 temperature 90.5 F height is 5 feet 2 inches weight is 202 pounds PE: PHYSICAL EXAMINATION: GENERAL: The patient is awake, alert, oriented, appropriate, very pleasant demeanor HEENT: Shows normocephalic, atraumatic. Extraocular movements are intact and symmetrical. NECK: Shows anterior throat supple without palpable lymphadenopathy noted. Swallow reflex symmetrical. CHEST: Shows normal on inspection. Breath sounds are clear bilaterally. HEART: Shows S1, S2 clear. No murmurs auscultated. ABDOMEN: Soft, nontender, nondistended, obese. No palpable organomegaly is noted. No rebound or guarding. BACK: Shows spine grossly in the midline. Normal-appearing cervical lordotic curvature. There is slightly increased thoracic kyphosis, some minor flattening of the lumbar lordotic curvature. Lumbar paraspinous muscles show symmetrical on inspection, on palpation shows some moderate tenderness diffusely throughout the upper, middle and lower distribution of the paraspinous muscles, but without specific trigger points, without radiation of pain. The patient has good rotational motion of the lumbar spine, both laterally as well as extension and flexion without significant difficulty. No tenderness over the spinous processes, sacrum or sacroiliac regions. EXTREMITIES: Lower extremities show deep tendon reflexes 1+ in the patellar and tendo calcaneus tendons. Motor exam is 4 on a scale of 5 with right dorsiflexion, extension, quadriceps and hamstring flexion and 4/5 on the left. Peripheral pulses are 1+ posterior tibial. No peripheral edema is noted bilaterally. Lower extremities are warm and dry to touch, equal in color and appearance. SKIN: Shows warm and dry, good turgor. No edema. No sores, rashes or bruising throughout. Procedure: Procedure: Options were discussed with the patient. Patient chart was reviewed as her current medication regimen updated current review of systems updated today as well. We will proceed with a second in the series lumbar epidural steroid injection today with fluoroscopic guidance. Risks were discussed including but not limited to: Bleeding, infection, possibility of epidural hematoma and subsequent neurological compromise, dural puncture, headaches, spinal cord and/or nerve damage, side effects of steroid medication, and poor results regarding pain control. Patient understands wished to proceed. Patient will return to the clinic in approximate 2 weeks for follow-up, was counseled as to return appointment activity level and side effects to be aware of. Medication Injected: Med Injected: Procedure is lumbar epidural steroid injection under local anesthetic using sterile prep and drape at the L5-S1 level using C-arm fluoroscopic guidance in both AP and lateral views medications injected is 120 mg Depo-Medrol + 10 mL preservative-free normal saline and 2 mL contrast- condition at discharge is stable patient tolerated procedure well had no complications. Condition at Discharge: Condition at Discharge: Condition at discharge stable, patient tolerated procedure well had no complications. ASHLEY DINH MD Aug 30, 2020 10:56
== END | disposition home or self-care (01) ==
LOC: PNCL 10:08
PROVIDERS: ATTEND Anesthesiology
DX: M51.16 Intervertebral disc disorders with radiculopathy, lumbar region (principal); M96.1 Postlaminectomy syndrome, not elsewhere classified; I10 Essential (primary) hypertension; E78.00 Pure hypercholesterolemia, unspecified; K21.9 Gastro-esophageal reflux disease without esophagitis; M19.90 Unspecified osteoarthritis, unspecified site; E66.9 Obesity, unspecified; M81.0 Age-related osteoporosis without current pathological fracture; Z90.710 Acquired absence of both cervix and uterus; Z98.890 Other specified postprocedural states; Z85.828 Personal history of other malignant neoplasm of skin; Z79.82 Long term (current) use of aspirin; Z79.899 Other long term (current) drug therapy; Z91.041 Radiographic dye allergy status; Z88.8 Allergy status to other drugs, medicaments and biological substances; Z87.891 Personal history of nicotine dependence
CPT/HCPCS: 62323; J1030; J1040; Q9965

== ENCOUNTER → 2021-07-13 | Outpatient (CLI) | payer BC ==
[~2021-07-13] MED LIST changes: -CALC600T6 PO; +CALC600T60 PO; -IOHEXOL 180 MG/ML 10 ML VIAL. ONE; +VERA180T22 PO; -VERA180T6 PO; -methylPREDNISolone ACETATE 40 MG/ML VIAL. ONE; -methylPREDNISolone ACETATE 80 MG/ML VIAL. ONE
--- NOTE | 2021-07-13 09:42 | RAD ---
EXAM: Bilateral digital screening mammogram with tomosynthesis. HISTORY: 80-year-old female presents for screening mammography. TECHNIQUE: Full-field digital craniocaudal and mediolateral oblique 2D and 3D tomosynthesis images of both breasts are obtained for evaluation. Computer aided detection was applied. COMPARISON: 07/14/2020 and 10/07/2017 BREAST PARENCHYMAL DENSITY: Level B - Scattered fibroglandular densities. FINDINGS: There is no new suspicious mass, microcalcification or region of architectural distortion. There is a stable small nodular asymmetry within the anterior 2:00 position of the left breast. The g reater than 3 year course of stability favors benignity. There are benign calcifications within the r ight breast. IMPRESSION: BI-RADS Category 2: Benign finding(s). RECOMMENDATION: Annual mammography is recommended. If your mammogram demonstrates that you have dense breast tissue, which could hide abnormalities, and if you have other risk factors for breast cancer that have been identified, you might benefit from s upplemental screening tests that may be suggested by your ordering physician. Dense breast tissue, i n and of itself, is a relatively common condition. This information is not provided to cause undue c oncern, but rather to raise your awareness and to promote discussion with your physician regarding th e presence of other risk factors, in addition to dense breast tissue. A report of your mammography re sults will be sent to you and your physician. You should contact your physician if you have any ques tions or concerns regarding this report. Mammography is a sensitive method for finding small breast cancers, but it does not detect them all a nd is not a substitute for careful clinical examination. A negative mammogram does not negate a clin ically suspicious finding and should not result in delay in biopsying a clinically suspicious abnorma lity. PQRS compliance statement - Patient information was entered into a reminder system with a target due date for the next mammogram. "Our facility is accredited by the [employer] Mammography Program." Electronically signed by: Maria Fernanda Maria MD (07/13/2021 9:39 AM) [id number]
== END ==
LOC: MAMMO 08:28
PROVIDERS: ATTEND Family Medicine
DX: Z12.31 Encounter for screening mammogram for malignant neoplasm of breast (principal)
CPT/HCPCS: 77063; 77067